=== PATIENT | male | born 1960 | race Caucasian/White ===

== ENCOUNTER 2018-09-17 13:12 | Emergency (ER) | payer BC, OTHER ==
--- OUTSIDE RECORDS SUMMARY | 2018-09-17 13:32 | XMS REPORT | Continuity of Care Document ---
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 Payers Date Identification Numbers Payment Provider Subscriber Effective: 2011 Policy Number: [id number] [employer] Group Name: [id number] [address] [address] PayID: [id number] ELAINE Curtis [id number] Advance Directives Description No Information Available Problems Active Problems Provider Date Pure hypercholesterolemia Suzie Pope MD Onset: 01/09/2006 Benign essential hypertension Suzie Pope MD Onset: 01/09/2006 Vitamin D deficiency Suzie Pope MD Onset: 12/08/2014 Essential hypertension Suzie Pope MD Onset: 01/30/2015 Mixed hyperlipidemia Suzie Pope MD Onset: 08/19/2016 Prosthetic arthroplasty of the hip Warren Groves PA Onset: 11/01/2016 Note: Right 10/2016 Family History Date Family Member(s) Observation Comments Father CT First Brother Heart Disease Second Brother Heart Disease Third Brother Cancer, Prostate Maternal Grandmother Cancer, Colon Social History Type Date Description Comments Sex Unknown Tobacco Use Start: Unknown End: Unknown Former Cigarette Smoker Tobacco Use Start: Unknown End: Unknown Patient is a former smoker Smoking Status Reviewed: 08/27/18 Patient is a former smoker Allergies, Adverse Reactions, Alerts Active Allergies Reaction Severity Comments Date Topiramate 10/24/2014 Inactive Allergies NKDA 12/10/2004 Medications Active Medications SIG Qnty Indications Ordering Date Provider Albuterol Sulfate 2 p four times a day 8.500gm R06.2 Niko, 06/15/2018 HFA as needed Suzie Teran MD 108(90Base) mcg/Act Aerosol Fluticasone 2 sprays in each 48gm J01.00 [facility], 06/15/2018 Propionate nostril daily Suzie Teran MD 50mcg/Act Suspension Gabapentin take 1 po bid and 2 120caps M47.816 [facility], 06/11/2018 300mg capsules by mouth Suzie Teran MD Capsules every night at bedtime Cpap autotitrating 5-15 G47.33 [facility], 06/08/2018 Device cm Suzie Teran MD Vitamin D3 1 by mouth every day E55.9 [facility], 05/21/2018 5000Unit Suzie Teran MD Tablets Atorvastatin 1 by mouth every day 90tabs E78.2 [facility], 05/21/2018 Calcium Suzie Teran MD 20mg Tablets Ozempic inject 0.5mg every 4.5ml E11.9 [facility], 05/21/2018 0.25Or 0.5 week as directed Suzie Teran MD mg/Dose Solution Pen-Inject Metaxalone 1- 2 every night at 30tabs M47.816 [facility], 05/18/2018 400mg bedtime as needed Suzie Teran MD Tablets Levitra 1 po qd prn 6tabs E29.1 [facility], 08/19/2016 10mg Suzie Teran MD Tablets Cock Up Splint wear qhs dx: bilat 2units G56.00 [facility], 06/02/2014 CTS Suzie Teran MD Lisinopril-Hydrochl take 1 tablet by 90tabs I10 [facility], 12/23/2013 orothiazide mouth once daily Suzie Teran MD 20-25mg Tablets Sertraline HCL take 1 and 1/2 135tabs F41.1 [facility], 05/31/2011 tablet by mouth once Suzie Teran MD 100mg Tablets daily History Medications Letter Of Support For this patient to Niko, 2018 - undergo bariatric Suzie Teran MD 08/27/2018 surgery for wt loss. Over the past decades we have tried multiple lifestyle and medication options Cheratussin ac 5-10 milliliters 120ml J01.00 [facility], 06/15/2018 - 100-10mg/5ML four times a day as Suzie Teran MD 08/27/2018 Solution needed cough Doxycycline Hyclate 1 by mouth twice a 20tabs J01.00 [facility], 06/15/2018 - 100mg day x 10 d Suzie Teran MD 08/27/2018 Tablets Prednisone 2 every in the 10tabs R06.2 [facility], 06/15/2018 - 20mg Tablets morning x 5 d Suzie Teran MD 08/27/2018 Cpap autotitrating 5-20 G47.33 [facility], 06/08/2018 - Device cm Suzie eTran MD 06/08/2018 Methylprednisolone as dir 21units M47.81 [facility], 05/18/2018 - 4mg TBPK 6 Suzie Teran MD 06/11/[address] excuse from work M47.81 [facility], 05/18/2018 - 05/18-05/29 return 6 Suzie Teran MD 06/15/2018 to work 05/30 Oseltamivir Phosphate 1 by mouth daily 10caps Niko, 06/14/2017 - 75mg for 10days Suzie Teran MD 06/24/2017 Capsules Azithromycin 1 by mouth every 3tabs J15.9 [facility], 06/01/2017 - 500mg Tablets day Suzie Teran MD 06/04/2017 Breo Ellipta 1 puff daily 28units J15.9 [facility], 06/01/2017 - 200-25mcg/Inh [sample x1] Suzie Teran MD 06/15/[address] excuse from work M16.12 [facility], 05/16/2017 - today thru 2/2 Suzie Teran MD 05/18/2018 Cyclobenzaprine HCL take one-half to 30tabs M54.32 [facility], 05/16/2017 - 10mg one tablet by mouth Suzie Teran MD 05/18/2018 Tablets at bedtime Hydrocodone-Acetaminophe 1-2 by mouth three 45tabs M16.12 [facility], 2017 - n times a day as Suzie Teran MD 05/18/2018 5-325mg Tablets needed Naproxen Sodium 1 po bid prn pain 60tabs M16.12 [facility], 05/16/2017 - 550mg Tablets Suzie Teran MD 08/27/2018 Azithromycin 2 tabs day one and 6tabs Niko, 01/06/2017 - 250mg Tablets 1 tab daily till Suzie Teran MD 01/25/2017 gone Famciclovir one tab three times 21tabs B02.9 [facility], 11/03/2016 - 500mg Tablets a day x 7 days Sunitha Aguilar RN 01/25/2017 [employer] Lidocaine apply daily for 12 30units B02.9 [facility], 11/03/2016 - 5% Patches hours and remove Sunitha Aguilar RN 01/25/2017 for 12 hours( [employer] generic ok) Tramadol HCL take one tablet by 30tabs Niko, 09/20/2016 - 50mg Tablets mouth three times a Suzie Teran MD 01/25/2017 day as needed for pain max of 3 tablets per day Vitamin D3 2 by mouth every E55.9 [facility], 08/19/2016 - 1000Unit Tablets day Suzie Teran MD 05/21/2018 Librax Take 1 Capsule 4 360caps Sarahri, 08/11/2016 - 5-2.5mg Capsules Times Daily MD Michael 08/19/2016 Vitamin D 1 by mouth qwk x 8 8caps Niko, 07/19/2016 - (Ergocalciferol) ekaterina Teran MD 08/19/2016 [id number] Capsules Fortamet 2 by mouth twice a 120tabs Z00.01 Niko, 07/15/2016 - 500mg Tablets ER day Suzie Teran MD 01/25/2017 24HR Work Note please excuse from Niko, 07/13/2015 - work 07/07-07/14 Suzie Teran MD 07/15/2016 Vitamin D 1 by mouth qwk x 8 8caps Nik[facility], 05/06/2015 - (Ergocalciferol) ekaterina Teran MD 07/15/2016 [id number] Capsules BD Pen for saxenda pen 30units Niko, 03/09/2015 - Needle/Short/Ultrafine/3 Suzie Teran MD 07/15/2016 1G X 5/16" 31G X 8 mm Misc Saxenda 3 mg sc every day 15ml E66.01 Nik[facility], 01/30/2015 - 18mg/3ML Solution Suzie Teran MD 07/15/2016 Pen-Inject Aspirin 1 by mouth every R07.2 [facility], 01/13/2015 - 325mg Tablets DR steff Teran MD 07/15/2016 Work Note pt needs to be oow R07.2 [facility], 01/13/2015 - today-sent to ER Suzie Teran MD 01/30/2015 Bupropion HCL ER (XL) 1 by mouth every 30tabs E29.1 Niko, 12/08/2014 - 300mg day Suzie Teran MD 07/15/2016 Tablets ER 24HR Levitra 1-2 by mouth every 6tabs E29.1 Niko, 12/08/2014 - 5mg Tablets day as needed Suzie Teran MD 08/19/2016 Bupropion HCL ER (XL) take one tablet by 7tabs E29.1 Nik[facility], 12/08/2014 - 150mg mouth every morning Suzie Teran MD 01/13/2015 Tablets ER 24HR Metformin HCL ER 1 with breakfast 2 90tabs Z00.01 Niko 12/08/2014 - 500mg with dinner Suzie Teran MD 07/15/2016 Tablets ER 24HR Meloxicam take 1/2 - 1 tablet 30tabs M25.55 Niko 10/24/2014 - 15mg Tablets everyday as needed 9 Suzie Teran MD 01/25/2017 Tramadol 1 by mouth twice a 60tabs M25.56 Niko 10/24/2014 - Hydrochloride/Acetaminop day as needed 9 Suzie Teran MD 07/15/2016 hen 37.5-325mg Tablets Vitamin D3 1 by mouth every E55.9 [facility] 10/24/2014 - 1000Unit Tablets day Suzie Teran MD 05/05/2015 Vitamin D 1 by mouth qwk x 8 8caps Niko, 06/03/2014 - (Ergocalciferol) wks Suzie Teran MD 10/24/2014 [id number] Capsules Contrave as dir starter QS 278.00 Niko, 06/02/2014 - 8-90mg Tablets ER pack- Suzie Teran MD 10/24/2014 12HR Robitussin ac 15cc every night at 150cc 478.9 Mandie Yousif 05/01/2014 - bedtime and tid MD Desire 06/02/2014 day time as needed for cough Azithromycin 2 tabs (500mg) on 6tabs 478.9 Mandie Yousif 05/01/2014 - 250mg Tablets day 1, then 1 tab MD Desire 06/02/2014 (250mg) by mouth on day 2-5. to fill only if no better in 48hr Tramadol Take 2 Tablets 3 540tabs Jitendra, 11/25/2013 - Hydrochloride/Acetaminop Times Daily as MD Morteza 06/02/2014 hen Needed 37.5-325mg Tablets Fluticasone Propionate 2 sprays in each 16units H69.93 Niko 2013 - nostril daily Suzie Teran MD 07/15/2016 50mcg/Act Suspension Atorvastatin Calcium 1 by mouth every 90tabs E78.2 Niko, 08/02/2013 - 10mg day Suzie Teran MD 05/21/2018 Tablets No Work Today for medical 780.79 Mandie Yousif 07/19/2013 - reasons. Seen in MD Desire 06/02/2014 our office Patient may extend sick leave tomorrow May 02, 2014 as needed Aspirin 1 po qd 785.9 Niko 06/18/2013 - 81mg Tablets Suzie Teran MD 01/13/2015 Topiramate 1 qhs x 1 wk then 2 90tabs 278.00 Niko 06/18/2013 - 50mg Tablets qhs x 1 wk then 1 Suzie Teran MD 08/02/2013 qam 2 qhs Omeprazole 1 by mouth every 30caps 530.11 Mandie Yousif 06/18/2013 - 40mg Capsules DR steff Phipps MD 12/08/2014 Work Note this pt's BP has Niko, 05/30/2012 - been well Suzie Teran MD 06/18/2013 controlled since 04/23/2012 appt Ultracet 1 po qid prn 120tabs 724.2 Niko, 04/23/2012 - 37.5-325mg Tablets Suzie Teran MD 06/02/2014 Work Note please excuse from 461.0 Niko 06/01/2011 - work 06/02, 06/03 Suzie Teran MD 01/02/2012 Alprazolam 1/2-2 po tid prn 20tabs Niko, 05/31/2011 - 0.25mg Tablets anxiety/insomnia Suzie Teran MD 06/18/2013 Azithromycin 2 tabs day one and 1Pack 461.0 Niko 05/31/2011 - 250mg Tablets 1 tab daily till Suzie Teran MD 04/23/2012 gone Vitamin D 1 po qwk x 8 wks 8caps Niko, 04/18/2011 - [id number] Capsules Suzie Teran MD 05/31/2011 Vitamin D 1 po qd 268.9 Niko, 04/18/2011 - 2000Unit Capsules Suzie Teran MD 06/02/2014 Alprazolam ER one half-two po tid 20tabs Niko, 04/04/2011 - 0.25mg Tablets prn anxiety Suzie Teran MD 05/31/2011 Sertraline HCL 1 And 1/2 qd 45tabs 300.02 Niko, 04/04/2011 - 50mg Tablets Suzie Teran MD 05/31/2011 Cialis Take 1 To 2 Tablets 6tabs 401.1 [place], 06/14/2010 - 10mg Tablets Daily as Directed Sunitha Aguilar RN 05/31/2011 [employer] Work Note pl excuse from work Niko, 05/07/2010 - 04/19 Suzie Teran MD 04/04/2011 Crestor take 1 tablet by 30tabs 272.0 Niko, 11/19/2009 - 20mg Tablets mouth once daily Suzie Teran MD 06/18/2013 Blood Draw lipid panel ast/alt [facility] 11/19/2009 - Fasting Suzie Teran MD 04/04/2011 dx: 272.0 Vytorin 1 po qd 30tabs Niko, 11/19/2009 - 10-80mg Tablets Suzie Teran MD 11/19/2009 Cialis 1/2-1 qd 3tabs 401.1 Nik[facility] 11/17/2009 - 20mg Tablets Suzie Teran MD 06/14/2010 Xanax one half-two po tid 20tabs Niko, 05/21/2009 - 0.25mg Tablets prn anxiety Suzie Teran MD 04/04/2011 Percocet 1-2 po qid prn 40tabs Niko, 02/24/2009 - 5-325mg Tablets Suzie Teran MD 11/17/2009 Physical Therapy eval and gently Niko, 02/24/2009 - treat lbp Suzie Teran MD 11/17/[address] excuse from work Niko, 02/24/2009 - 02/23-02/27 Suzie Teran MD 11/17/2009 Lisinopril take 1 tablet by 30tabs 401.1 [place], 12/29/2008 - 10mg Tablets mouth once daily Sunitha Aguilar RN 06/02/2014 [employer] Verapamil HCL ER take 1 capsule by 30caps Niko, 11/10/2008 - 300mg Caps mouth once daily Suzie Teran MD 04/04/2011 ER 24HR Tramadol Take 1 tablet every 120tabs 724.2 Niko 11/09/2008 - Hydrochloride/Acetaminop four hours as Suzie Teran MD 11/17/2009 hen directed Tabs Blood Draw cmp, lipid panel, 272.0 Niko 05/23/2008 - 25 oh vit D Suzie Teran MD 06/12/2008 dx: 272.0, vit D def Work Note pl excuse from work 724.2 [facility] 05/23/2008 - 05/26 and 05/27 Suzie Teran MD 06/22/2008 Blood Draw cbc, cmp, mg, TSH, 785.0 Niko 03/07/2008 - lipid panel, free Suzie Teran MD 04/06/2008 and total testosterone dx: 272.0, 785.0, low libido Cpap current cpap is G47.33 Niko 03/07/2008 - over 10 yrs old and Suzie Teran MD 06/08/2018 broken beyond repair.supplies.Do compliance downloads every 6 mos Cialis 1-2 PO qd 12tabs 401.1 Niko 03/07/2008 - 10mg Tablets Suzie Teran MD 11/17/2009 Celebrex take 1 capsule by 90capduran Pope 10/26/2007 - 200mg Caps mouth once daily if Suzie Teran MD 04/04/2011 needed May Take Second prn Nabumetone 2 PO qd 60tabs 724.1 Niko 08/28/2007 - 750mg Tablets Suzie Teran MD 10/26/2007 Medrol Dosepak as Dir 1Pack 724.1 [facility] 08/28/2007 - 4mg Tablets Suzie Teran MD 10/26/[address] excuse from work 724.1 Niko 08/21/2007 - until 08/26 Suzie Teran MD 10/26/2007 Hydrocodone/Acetaminophe 1-2 po qid prn 40tabs 724.1 Niko, 08/21/2007 - n Suzie Teran MD 11/17/2009 5-500mg Tablets Tussionex Pennkinetic 1 tsp q 12 hours 100ml 786.2 [facility], 04/03/2007 - Extended Release Sunitha Aguilar RN 04/23/2007 Liquid ER [employer] No Work 04/04/07 786.2 [facility], 04/03/2007 - D/T Illness Sunitha Aguilar RN 08/17/2007 [employer] Amoxicillin 1 PO bid 20tabs Niko, 03/27/2007 - 875mg Tablets Suzie Teran MD 08/17/2007 Wellbutrin XL 1 PO qd 7tabs 300.02 Niko, 07/10/2006 - 150mg Tablets Suzie Teran MD 03/07/2008 Wellbutrin XL 1 PO qd 30tabs 300.02 [facility], 07/10/2006 - 300mg Tablets Suzie Teran MD 03/07/2008 Lidoderm Apply as Directed 30units 724.2 Niko, 05/26/2006 - 5% Patches 1-3 Patches On X 12 Suzie Teran MD 11/17/2009 HRS Celebrex 1 PO qd prn 30caps 724.2 [facility], 05/26/2006 - 200mg Capsules Sunitha Aguilar RN 08/28/2007 [employer] Water Therapy Eval And Treat 724.2 Niko, 05/26/2006 - LBP/Mid Back Pain Suzie Teran MD 11/17/2009 Soma 1/2-1 PO tid prn 30tabs 786.59 Niko, 05/26/2006 - 350mg Tablets Suzie Teran MD 11/17/2009 Work Note Please Excuse From 786.59 Niko 05/26/2006 - Work 05/29-06/02 D/T Suzie Teran MD 09/15/2006 LBP And Acute Chest Wall Pain Blood Draw cbc, cmp, lipid 272.0 Niko, 01/09/2006 - panel, TSH, psa Suzie Teran MD 09/15/2006 dx: 272.0, fatigue, screen prostate CA Omeprazole 1 po qd 30units 724.2 Niko 01/09/2006 - 20mg Suzie Teran MD 11/17/2009 Nabumetone 1-2 po qd 60tabs 724.2 Del, 12/06/2005 - 750mg Tablets Sunitha Aguilar RN 05/26/2006 [employer] Physical Therapy eval and treat Niko, 05/20/2005 - lbpand r hip pain Suzie Teran MD 09/15/2006 [facility] [employer] Ultracet 1 PO Q4H 90tabs 724.2 Del, 04/12/2005 - 325mg;37.5 mg Sunitha Aguilar RN 11/09/2008 Tablets [employer] Blood Draw fasting: cbc, cmp, [facility] 04/12/2005 - lipid panel Suzie Teran MD 04/13/2005 dx: HTN, hiGHh chol Zestril 1 po qd 90tabs [place], 08/16/2004 - 10mg Tablets Suzie Teran MD 12/29/2008 Amoxicillin 1 po tid 30caps Niko, 08/16/2004 - 250mg Capsules Suzie Teran MD 12/10/2004 [address] [facility], 06/28/2004 - 10/40 Tablets Suzie Teran MD 11/19/2009 Verelan PM 1 po qd 90caps Niko, 06/28/2004 - 300mg Capsules Suzie Teran MD 11/10/2008 Levitra 1-2 po qd prn 12tabs Niko, 06/28/2004 - 10mg Tablets Suzie Teran MD 11/17/2009 Wellbutrin XL 1 po qam 30tabs Niko, 06/14/2004 - 300mg Tablets Suzie Teran MD 01/09/2006 Wellbutrin XL 1 po qd 30tabs [place], 06/14/2004 - 150mg Tablets MD Oswald 06/28/2004 Niaspan Extended Release 1 po qd 90tabs Trabout, 06/14/2004 - MD Oswald 06/28/2004 1,000mg Tablets Zocor 1 po qd 30tabs Trabout, 06/14/2004 - 40mg Tablets MD Oswald 06/28/2004 Immunizations CPT Code Status Date Vaccine Lot # [id number] Given 05/18/2018 Influenza Vac, Quadrivalent, Split, 0.5mL Dosage, Im Use 52079 Given 01/11/2017 Influenza Vac, Quadrivalent, Split, 0.5mL Dosage, Im Use 28307 Given 07/15/2016 Tdap (Adacel) Ages 7 And Above Only [id number] 30636 Given 01/13/2015 Influenza Vac, Quadrivalent, Split, 0.5mL Dosage, [id number] Im Use 59254 Given 05/31/2011 Pneumococcal 23 Immunization Adult Or [id number] Immunosuppressed Patient 57292 Given 03/07/2008 Afluria Or Fluvirin Flu Vac Intramuscular [id number] 79045 Given 04/12/2005 Tetanus And Diptheria Toxoids For Adult [id number] Use-preservative free 20644 Given 04/12/2005 Afluria Or Fluvirin Flu Vac Intramuscular [id number] 77139 Given 01/14/2003 Afluria Or Fluvirin Flu Vac Intramuscular [id number] Refused 07/15/2016 Influenza Vac, Quadrivalent, Split, 0.5mL Dosage, Im Use Vital Signs Date Vital Result Comment 08/27/2018 1:21pm Weight 265.00 lb Heart Rate 76 /min BP Systolic 140 mmHg BP Diastolic 64 mmHg BP Systolic Recheck 128 mmHg BP Diastolic Recheck 80 mmHg Height 70.25 inches 5'10.25" BMI (Body Mass Index) 37.7 kg/m2 06/15/2018 4:00pm Body Temperature 99.4 F Weight 281.00 lb Heart Rate 76 /min BP Systolic 128 mmHg BP Diastolic 68 mmHg Height 70.25 inches 5'10.25" BMI (Body Mass Index) 40.0 kg/m2 05/18/2018 2:56pm Weight 290.00 lb Heart Rate 60 /min BP Systolic 128 mmHg BP Diastolic 68 mmHg Height 70.25 inches 5'10.25" BMI (Body Mass Index) 41.3 kg/m2 06/01/2017 9:39am Body Temperature 96.4 F Weight 276.00 lb Heart Rate 72 /min BP Systolic 148 mmHg BP Diastolic 84 mmHg Height 70.25 inches 5'10.25" O2 % BldC Oximetry 99 % Ra BMI (Body Mass Index) 39.3 kg/m2 05/16/2017 2:29pm Heart Rate 76 /min BP Systolic 128 mmHg BP Diastolic 76 mmHg Height 70.25 inches 5'10.25" 01/25/2017 2:37pm Weight 281.00 lb Heart Rate 76 /min BP Systolic 132 mmHg BP Diastolic 86 mmHg Height 70.25 inches 5'10.25" BMI (Body Mass Index) 40.0 kg/m2 11/03/2016 4:14pm Weight 270.25 lb Heart Rate 84 /min BP Systolic 145 mmHg BP Diastolic 81 mmHg Height 70.25 inches 5'10.25" BMI (Body Mass Index) 38.5 kg/m2 08/19/2016 2:13pm Weight 266.00 lb Heart Rate 80 /min BP Systolic 136 mmHg BP Diastolic 76 mmHg Height 70.25 inches 5'10.25" BMI (Body Mass Index) 37.9 kg/m2 07/15/2016 8:43am Weight 277.00 lb Heart Rate 68 /min BP Systolic 144 mmHg BP Diastolic 84 mmHg BP Systolic Recheck 138 mmHg BP Diastolic Recheck 80 mmHg Height 70.25 inches 5'10.25" BMI (Body Mass Index) 39.5 kg/m2 05/05/2015 1:13pm Body Temperature 97.8 F Weight 262.00 lb Heart Rate 76 /min BP Systolic 136 mmHg BP Diastolic 68 mmHg Height 70.25 inches 5'10.25" BMI (Body Mass Index) 37.3 kg/m2 03/02/2015 2:43pm Weight 262.00 lb Heart Rate 76 /min BP Systolic 128 mmHg BP Diastolic 64 mmHg Height 70.25 inches 5'10.25" BMI (Body Mass Index) 37.3 kg/m2 01/30/2015 1:41pm Weight 274.00 lb Heart Rate 80 /min BP Systolic 132 mmHg BP Diastolic 68 mmHg Height 70.25 inches 5'10.25" BMI (Body Mass Index) 39.0 kg/m2 01/13/2015 12:19pm Weight 275.00 lb Heart Rate 84 /min BP Systolic 128 mmHg BP Diastolic 72 mmHg Height 70.25 inches 5'10.25" BMI (Body Mass Index) 39.2 kg/m2 12/08/2014 11:38am Weight 279.00 lb Heart Rate 64 /min BP Systolic 142 mmHg BP Diastolic 86 mmHg Height 70.25 inches 5'10.25" BMI (Body Mass Index) 39.7 kg/m2 10/24/2014 3:03pm Weight 273.00 lb Heart Rate 80 /min BP Systolic 148 mmHg BP Diastolic 86 mmHg Height 70.25 inches 5'10.25" BMI (Body Mass Index) 38.9 kg/m2 06/02/2014 2:22pm Weight 268.00 lb Heart Rate 88 /min BP Systolic 140 mmHg BP Diastolic 66 mmHg Height 70.25 inches 5'10.25" BMI (Body Mass Index) 38.2 kg/m2 05/01/2014 10:33am Weight 266.50 lb Heart Rate 76 /min BP Systolic 124 mmHg BP Diastolic 80 mmHg Height 70.25 inches 5'10.25" BMI (Body Mass Index) 38.0 kg/m2 08/02/2013 3:08pm Weight 272.00 lb Heart Rate 68 /min BP Systolic 118 mmHg BP Diastolic 70 mmHg Height 70.25 inches 5'10.25" BMI (Body Mass Index) 38.7 kg/m2 07/19/2013 12:11pm Body Temperature 97.9 F Weight 272.00 lb Heart Rate 72 /min BP Systolic 148 mmHg BP Diastolic 91 mmHg O2 Saturation Level with Exercise 96 % 06/18/2013 3:14pm Weight 277.00 lb Heart Rate 80 /min BP Systolic 142 mmHg BP Diastolic 82 mmHg Height 70.25 inches 5'10.25" BMI (Body Mass Index) 39.5 kg/m2 04/23/2012 5:35pm Weight 265.00 lb Heart Rate 76 /min BP Systolic 120 mmHg BP Diastolic 82 mmHg Height 70.25 inches 5'10.25" BMI (Body Mass Index) 37.7 kg/m2 05/31/2011 10:16am Weight 242.00 lb Heart Rate 60 /min BP Systolic 136 mmHg BP Diastolic 88 mmHg Height 70.25 inches 5'10.25" BMI (Body Mass Index) 34.5 kg/m2 04/04/2011 12:23pm Weight 259.00 lb Heart Rate 64 /min BP Systolic 146 mmHg BP Diastolic 96 mmHg Height 70.5 inches 5'10.50" BMI (Body Mass Index) 36.6 kg/m2 11/17/2009 11:58am Weight 235.00 lb Heart Rate 60 /min BP Systolic 120 mmHg BP Diastolic 74 mmHg Urine Dipstick - Blood NEGATIVE Urine Dipstick - Protein NEGATIVE Urine Dipstick - Glucose NEGATIVE 05/23/2008 4:23pm Weight 248.00 lb Heart Rate 76 /min BP Systolic 136 mmHg BP Diastolic 78 mmHg 03/07/2008 3:59pm Weight 248.00 lb Heart Rate 76 /min BP Systolic 140 mmHg BP Diastolic 80 mmHg Height 70.25 inches 5'10.25" BMI (Body Mass Index) 35.3 kg/m2 08/28/2007 12:27pm Weight 238.00 lb Heart Rate 76 /min BP Systolic 123 mmHg BP Diastolic 75 mmHg Height 70.25 inches 5'10.25" BMI (Body Mass Index) 33.9 kg/m2 08/21/2007 11:45am Weight 238.00 lb Heart Rate 81 /min BP Systolic 145 mmHg BP Diastolic 91 mmHg Height 70.25 inches 5'10.25" BMI (Body Mass Index) 33.9 kg/m2 Urine Dipstick - Blood NEGATIVE Urine Dipstick - Protein NEGATIVE Urine Dipstick - Glucose NEGATIVE 04/03/2007 4:21pm Body Temperature 97.6 F Weight 240.00 lb Heart Rate 84 /min BP Systolic 145 mmHg BP Diastolic 90 mmHg Height 70.25 inches 5'10.25" BMI (Body Mass Index) 34.2 kg/m2 09/15/2006 7:59am Weight 223.00 lb Heart Rate 64 /min BP Systolic 128 mmHg BP Diastolic 76 mmHg Height 70.25 inches 5'10.25" BMI (Body Mass Index) 31.8 kg/m2 07/10/2006 11:10am Weight 247.00 lb Heart Rate 72 /min BP Systolic 140 mmHg BP Diastolic 82 mmHg Height 70.25 inches 5'10.25" BMI (Body Mass Index) 35.2 kg/m2 05/26/2006 11:25am Weight 241.00 lb Heart Rate 76 /min Height 70.25 inches 5'10.25" BMI (Body Mass Index) 34.3 kg/m2 05/26/2006 11:19am BP Systolic 124 mmHg BP Diastolic 82 mmHg Height 70.25 inches 5'10.25" 01/09/2006 10:43am Weight 239.00 lb Heart Rate 72 /min BP Systolic 106 mmHg BP Diastolic 70 mmHg Height 70.25 inches 5'10.25" BMI (Body Mass Index) 34.0 kg/m2 Urine Dipstick - Blood NEGATIVE Urine Dipstick - Protein NEGATIVE Urine Dipstick - Glucose NEGATIVE 04/12/2005 10:38am Weight 225.00 lb Heart Rate 60 /min BP Systolic 146 mmHg BP Diastolic 83 mmHg BP Systolic Recheck 130 mmHg BP Diastolic Recheck 85 mmHg Urine Dipstick - Blood NEGATIVE Urine Dipstick - Protein NEGATIVE Urine Dipstick - Glucose NEGATIVE 12/10/2004 3:50pm Weight 228.00 lb Heart Rate 76 /min BP Systolic 144 mmHg BP Diastolic 80 mmHg 06/28/2004 2:28pm Weight 240.00 lb Heart Rate 82 /min BP Systolic 149 mmHg BP Diastolic 90 mmHg Results Test Date Facility Test Result H/L Range Note Basic (BMP) 08/27/2018 [facility] Sodium 139 mmol/L 135-146 1, 2 Potassium 4.2 mmol/L 3.5-5.2 Chloride# 102 mmol/L 97-110 3 Carbon Dioxide 27 mmol/L 24-34 Glucose 88 mg/dL 70-105 BUN 24 mg/dL 6-26 Creatinine 1.0 mg/dL 0.5-1.4 Calcium 9.9 mg/dL 8.5-10.5 4 Female Egfr 62 >60 5 Male Egfr 83 >60 6 Anion Gap 10 mmol/L 5-15 7 Lipid Treatment 08/27/2018 [facility] Cholesterol 163 mg/dL 50-199 Triglycerides 271 mg/dL High 30-200 HDL 33 mg/dL 29-71 8 Chol/ HDL Ratio 5.0 ratio 4.0-6.7 VLDL 54 mg/dL High 2-29 LDL (Calc) 76 mg/dL 20-99 9 Alt 19 U/L 3-42 Ast 17 U/L 8-42 Laboratory test 08/27/2018 [facility] Vitamin D 25 Hydroxy 19 ng/mL Low 30- 100 10 finding Hemoglobin A1c 08/27/2018 [facility] Hemoglobin A1c 5.8 % 4.1-5.9 Estimated Average Glucose Calc 120 mg/dL 71-140 Laboratory test finding 08/27/2018 [facility] PSA 1.200 ng/mL 0.000-4.000 11 TSH 1.51 uIU/mL 0.35-4.94 Magnesium 2.0 mg/dL 1.5-2.7 Laboratory test 06/15/2018 Done In Doctors Office 1 Rapid Flu NEG FOR A finding Test (In House) AND B CBC with Auto 05/18/2018 [facility] WBC 7.3 K/uL 4.1-11.0 Diff-fcmg RBC 5.09 M/uL 4.60-6.10 Hemoglobin 15.1 gm/dL 13.5-18.0 Hematocrit 44.6 % 41.0-53.0 MCV 87.7 fL 80.0-97.0 MCH 29.8 pg 27.0-32.0 MCHC 34.0 g/dL 32.0-36.0 RDW 14.6 % High 11.5-14.5 PLT Count 287 K/ul 140-400 MPV 8.1 FL 7.1-10.7 Neutrophil 58.3 % 35.0-75.0 Lymphocyte 28.6 % 16.0-52.0 Monocyte 9.0 % 2.0-10.0 Eosinophil 3.2 % 0.0-5.0 Basophil 0.9 % 0.0-4.0 Abs Neutrophils 4.3 K/uL 2.1-8.0 Abs Lymphocytes 2.1 K/uL 0.8-5.5 Abs Monocytes 0.7 K/uL 0.1-1.0 Abs Eosinophils 0.2 K/uL 0.0-0.5 Abs Basophils 0.1 K/uL 0.0-0.3 Comprehensive Met Panel-[facility] 05/18/2018 [place] Sodium 138 mmol/L 135- 146 12 Potassium 4.7 mmol/L 3.5-5.2 Chloride# 100 mmol/L 97-110 13 Carbon Dioxide 32 mmol/L 24-34 Glucose 102 mg/dL 70-105 BUN 18 mg/dL 6-26 Creatinine 1.1 mg/dL 0.5-1.4 Calcium 9.4 mg/dL 8.5-10.2 Total Protein 6.4 g/dL 6.0-8.0 Albumin 4.4 g/dL 3.6-4.9 Globulin 2.0 g/dL 2.0-3.5 A/G Ratio 2.2 Ratio 1.0-2.2 Total Bilirubin 0.3 mg/dL 0.1-1.3 Alkaline Phosphatase 88 U/L 24-140 Alt 29 U/L 3-42 Ast 20 U/L 8-42 Anion Gap 6 mmol/L 5-15 14 Anabela Egfr >60 >60 15 Non Anabela Egfr >60 >60 16 Lipid 05/18/2018 [place] Cholesterol 241 mg/dL High 50-199 Triglycerides 326 mg/dL High 30-200 HDL 34 mg/dL 29-71 17 Chol/ HDL Ratio 7.0 ratio High 4.0-6.7 VLDL 65 mg/dL High 2-29 LDL (Calc) 142 mg/dL High 20-99 18 Hemoglobin A1c 05/18/2018 [place] Hemoglobin A1c 6.7 % High 4.1-5.9 Estimated Average Glucose Calc 146 mg/dL High 71-140 Laboratory test finding 05/18/2018 [facility] Vitamin D 25 Hydroxy 18 ng/mL Low 30-100 19 TSH 1.57 uIU/mL 0.35-4.94 Laboratory test finding 01/25/2017 [facility] SEE NOTE 20 Laboratory test finding 01/25/2017 [facility] Vit D25oh 28 ng/mL Low 31-100 TSH 1.21 uIU/mL 0.35-4.94 Lipid 01/25/2017 [facility] Cholesterol 180 mg/dL 50-199 Triglycerides 258 mg/dL High 30-200 HDL 33 mg/dL 29-71 21 Chol/ HDL Ratio 5.4 ratio 4.0-6.7 VLDL 52 mg/dL High 2-29 LDL (Calc) 95 mg/dL 20-99 22 Hemoglobin A1c 01/25/2017 [facility] Hemoglobin A1c 6.4 % High 4.1-5.9 Estimated Average Glucose Calc 137 71-140 Comprehensive Met Panel-[facility] 01/25/2017 [facility] Sodium 139 mmol/L 135- 146 23 Potassium 4.8 mmol/L 3.5-5.2 Chloride# 103 mmol/L 97-110 24 Carbon Dioxide 25 mmol/L 24-34 Glucose 78 mg/dL 70-105 Creatinine 1.0 mg/dL 0.5-1.4 Calcium 9.3 mg/dL 8.5-10.2 Total Protein 6.6 g/dL 6.0-8.0 Albumin 4.0 g/dL 3.6-4.9 Globulin 2.6 g/dL 2.0-3.5 A/G Ratio 1.5 Ratio 1.0-2.2 Total Bilirubin 0.4 mg/dL 0.1-1.3 Alkaline Phosphatase 83 U/L 24-140 Alt 26 U/L 3-42 Ast 19 U/L 8-42 Anabela Egfr >60 >60 25 Non Anabela Egfr >60 >60 26 Anion Gap 11 mmol/L 7-16 27 BUN 14 mg/dL 6-26 Comprehensive Metabolic (CMP) 08/19/2016 [facility] Sodium 137 mmol/L 135- 146 28 Potassium 4.2 mmol/L 3.5-5.2 Chloride# 100 mmol/L 97-110 29 Carbon Dioxide 29 mmol/L 24-34 Glucose 90 mg/dL 70-105 BUN 19 mg/dL 6-26 Creatinine 1.1 mg/dL 0.5-1.4 Calcium 9.5 mg/dL 8.5-10.2 Total Protein 7.1 g/dL 6.0-8.0 Albumin 4.5 g/dL 3.6-4.9 Globulin 2.6 g/dL 2.0-3.5 A/G Ratio 1.7 Ratio 1.0-2.2 Total Bilirubin 0.4 mg/dL 0.1-1.3 Alkaline Phosphatase 83 U/L 24-140 Alt 24 U/L 3-42 Ast 20 U/L 8-42 Anabela Egfr >60 >60 30 Non Anabela Egfr >60 >60 31 Anion Gap 12 mmol/L 7-16 32 Lipid 08/19/2016 [facility] Cholesterol 184 mg/dL 50-199 Triglycerides 195 mg/dL 30-200 HDL 39 mg/dL 29-71 33 Chol/ HDL Ratio 4.8 ratio 4.0-6.7 VLDL 39 mg/dL High 2-29 LDL (Calc) 107 mg/dL High 20-99 34 Laboratory test finding 08/19/2016 [facility] Vit D,25 Hydroxy 35 ng/mL 31- 100 Laboratory test finding 07/15/2016 [facility] Amylase 35 U/L 29-103 Lipase 36 U/L 11-82 Testos,Bioavail,Male-[facility] 07/15/2016 [facility] Testosterone 212 ng/dL Low 285-950 Total Adult Male Sex Hormone Binding Globulin 27.7 nmol/L 13.3-89.5 Testosterone Bioavailable Adult Male 105 ng/dL 100-525 Testosterone Percent Free 2.1 % 1.8-3.2 Testosterone Free Adult Male 45 pg/mL Low 50-247 CBC With Auto Diff 07/15/2016 [facility] WBC 7.0 K/uL 4.1-11.0 RBC 5.02 M/uL 4.60-6.10 Hemoglobin 15.0 gm/dL 13.5-18.0 Hematocrit 44.3 % 41.0-53.0 MCV 88.3 fL 80.0-97.0 MCH 30.0 pg 27.0-32.0 MCHC 33.9 g/dL 32.0-36.0 RDW 14.0 % 11.5-14.5 PLT Count 297 K/ul 140-400 Neutrophil 52.3 % 35.0-75.0 Lymphocyte 34.1 % 16.0-52.0 Monocyte 9.1 % 2.0-10.0 Eosinophil 3.2 % 0.0-5.0 Basophil 1.3 % 0.0-4.0 Abs Neutrophils 3.7 K/uL 2.1-8.0 Abs Lymphocytes 2.4 K/uL 0.8-5.5 Abs Monocytes 0.6 K/uL 0.1-1.0 Abs Eosinophils 0.2 K/uL 0.0-0.5 Abs Basophils 0.1 K/uL 0.0-0.3 Comprehensive Metabolic (CMP) 07/15/2016 [facility] Sodium 138 mmol/L 135- 146 35 Potassium 4.5 mmol/L 3.5-5.2 Chloride# 102 mmol/L 97-110 36 Carbon Dioxide 28 mmol/L 24-34 Glucose 114 mg/dL High 70-105 BUN 18 mg/dL 6-26 Creatinine 1.0 mg/dL 0.5-1.4 Calcium 9.2 mg/dL 8.5-10.2 Total Protein 6.6 g/dL 6.0-8.0 Albumin 4.3 g/dL 3.6-4.9 Globulin 2.3 g/dL 2.0-3.5 A/G Ratio 1.9 Ratio 1.0-2.2 Total Bilirubin 0.5 mg/dL 0.1-1.3 Alkaline Phosphatase 73 U/L 24-140 Alt 28 U/L 3-42 Ast 20 U/L 8-42 Anabela Egfr >60 >60 37 Non Anabela Egfr >60 >60 38 Anion Gap 13 mmol/L 7-16 39 Laboratory test finding 07/15/2016 [facility] Hemoglobin A1c 6.3 % High 4.1- 5.9 Lipid 07/15/2016 [facility] Cholesterol 256 mg/dL High 50-199 Triglycerides 231 mg/dL High 30-200 HDL 35 mg/dL 29-71 40 Chol/ HDL Ratio 7.3 ratio High 4.0-6.7 VLDL 46 mg/dL High 2-29 LDL (Calc) 175 mg/dL High 20-99 41 Laboratory test finding 07/15/2016 [facility] Vit D,25 Hydroxy 20 ng/mL Low 31-100 PSA 0.970 ng/mL 0.000-4.000 42 TSH 1.41 uIU/mL 0.35-4.94 Comprehensive Metabolic (CMP) 05/05/2015 [facility] Sodium 134 mmol/L 134- 142 Potassium 4.0 mmol/L 3.5-5.2 Chloride 101 mmol/L 97-109 Carbon Dioxide 27 mmol/L 24-34 Glucose 96 mg/dL 70-105 BUN 18 mg/dL 6-26 Creatinine 1.2 mg/dL 0.5-1.4 Calcium 8.7 mg/dL 8.5-10.2 Total Protein 6.3 g/dL 6.0-8.0 Albumin 4.0 g/dL 3.6-4.9 Globulin 2.3 g/dL 2.0-3.5 A/G Ratio 1.7 Ratio 1.0-2.2 Total Bilirubin 0.3 mg/dL 0.1-1.3 Alkaline Phosphatase 82 U/L 24-140 Alt 26 U/L 3-42 Ast 18 U/L 8-42 Anion Gap 10 mmol/L 6-14 Anabela Egfr >60 >60 43 Non Anabela Egfr >60 >60 44 Lipid 05/05/2015 [facility] Cholesterol 145 mg/dL 50-199 Triglycerides 456 Specimen Mod <SEE NOTE> mg/dL High 30-200 45 HDL 29 mg/dL 29-71 46 Chol/ HDL Ratio 5.0 ratio 4.0-6.7 Laboratory test finding 05/05/2015 [place] Hemoglobin A1c 5.9 % 4.1-5.9 Vit D,25 Hydroxy 23 ng/mL Low 31-100 Laboratory test finding 05/05/2015 [facility] Direct LDL 76 mg/dL 20-99 47 Comprehensive Metabolic (CMP) 01/30/2015 [facility] Sodium 138 mmol/L 134- 142 Potassium 4.8 mmol/L 3.5-5.2 Chloride 103 mmol/L 97-109 Carbon Dioxide 30 mmol/L 24-34 Glucose 84 mg/dL 70-105 BUN 18 mg/dL 6-26 Creatinine 1.1 mg/dL 0.5-1.4 Calcium 9.2 mg/dL 8.5-10.2 Total Protein 6.8 g/dL 6.0-8.0 Albumin 4.3 g/dL 3.6-4.9 Globulin 2.5 g/dL 2.0-3.5 A/G Ratio 1.7 Ratio 1.0-2.2 Total Bilirubin 0.4 mg/dL 0.1-1.3 Alkaline Phosphatase 81 U/L 24-140 Alt 24 U/L 3-42 Ast 17 U/L 8-42 Anion Gap 10 mmol/L 6-14 Anabela Egfr >60 >60 48 Non Anabela Egfr >60 >60 49 Laboratory test finding 12/08/2014 [facility] Lyme Igm/Igg AB NEGATIVE (Neg ) 50 CCP Antibody Igg 3 51 Rubella Igg AB POSITIVE AI 52 Measles Igg AB POSITIVE AI 53 Mumps Igg (Immune) POSITIVE AI 54 Laboratory test finding 12/08/2014 [facility] CPK 185 U/L 12-199 Esr 9 mm/hr 0-15 CRP (C-Reactive) 0.49 mg/dL 0.00-0.75 Rheumatoid Factor <10.0 IU/mL 0.0-10.0 Uric Acid 6.2 mg/dL 2.6-8.4 Amy Screen Neg Neg TSH 1.22 uIU/mL 0.35-4.94 CBC With Auto Diff 12/08/2014 [facility] WBC 7.0 K/uL 4.1-11.0 RBC 4.83 M/uL 4.60-6.10 Hemoglobin 14.3 gm/dL 13.5-18.0 Hematocrit 43.5 % 41.0-53.0 MCV 90.2 fL 80.0-97.0 MCH 29.7 pg 27.0-32.0 MCHC 32.9 g/dL 32.0-36.0 RDW 13.8 % 11.5-14.5 PLT Count 261 K/ul 140-400 Neutrophil 51.4 % 35.0-75.0 Lymphocyte 35.9 % 16.0-52.0 Monocyte 8.4 % 2.0-10.0 Eosinophil 3.2 % 0.0-5.0 Basophil 1.1 % 0.0-4.0 Abs Neutrophils 3.6 K/uL 2.1-8.0 Abs Lymphocytes 2.5 K/uL 0.8-5.5 Abmon 0.6 K/uL 0.1-1.0 Abs Eosinophils 0.2 K/uL 0.0-0.5 Abs Basophils 0.1 K/uL 0.0-0.3 Laboratory test finding 12/08/2014 [facility] Hemoglobin A1c 6.4 % High 4.1- 5.9 Vit D,25 Hydroxy 37 ng/mL 31-100 PSA 0.990 ng/mL 0.000-4.000 55 Lipid 12/08/2014 [facility] Cholesterol 170 mg/dL 50-199 Triglycerides 187 mg/dL 30-200 HDL 35 mg/dL 29-71 56 Chol/ HDL Ratio 4.9 ratio 4.0-6.7 VLDL 37 mg/dL High 2-29 LDL (Calc) 98 mg/dL 20-99 57 Comprehensive Metabolic (CMP) 12/08/2014 [facility] Sodium 136 mmol/L 134- 142 Potassium 4.2 mmol/L 3.5-5.2 Chloride 103 mmol/L 97-109 Carbon Dioxide 23 mmol/L Low 24-34 Glucose 90 mg/dL 70-105 BUN 14 mg/dL 6-26 Creatinine 0.9 mg/dL 0.5-1.4 Calcium 8.6 mg/dL 8.5-10.2 Total Protein 6.4 g/dL 6.0-8.0 Albumin 4.1 g/dL 3.6-4.9 Globulin 2.3 g/dL 2.0-3.5 A/G Ratio 1.8 Ratio 1.0-2.2 Total Bilirubin 0.4 mg/dL 0.1-1.3 Alkaline Phosphatase 70 U/L 24-140 Alt 27 U/L 3-42 Ast 18 U/L 8-42 Anion Gap 14 mmol/L 6-14 Anabela Egfr >60 >60 58 Non Anabela Egfr >60 >60 59 [facility] 60 CBC With Auto Diff 06/02/2014 [facility] WBC 7.9 K/uL 4.1-11.0 RBC 4.97 M/uL 4.60-6.10 Hemoglobin 15.1 gm/dL 13.5-18.0 Hematocrit 44.2 % 41.0-53.0 MCV 89.0 fL 80.0-97.0 MCH 30.3 pg 27.0-32.0 MCHC 34.1 g/dL 32.0-36.0 RDW 14.1 % 11.5-14.5 PLT Count 321 K/ul 140-400 Neutrophil 57.1 % 35.0-75.0 Lymphocyte 30.5 % 16.0-52.0 Monocyte 7.6 % 2.0-10.0 Eosinophil 3.6 % 0.0-5.0 Basophil 1.2 % 0.0-4.0 Abs Neutrophils 4.5 K/uL 2.1-8.0 Abs Lymphocytes 2.4 K/uL 0.8-5.5 Abmon 0.6 K/uL 0.1-1.0 Abs Eosinophils 0.3 K/uL 0.0-0.5 Abs Basophils 0.1 K/uL 0.0-0.3 Comprehensive Metabolic (CMP) 06/02/2014 [facility] Sodium 134 mmol/L 134- 142 Potassium 4.1 mmol/L 3.5-5.2 Chloride 102 mmol/L 97-109 Carbon Dioxide 25 mmol/L 24-34 Glucose 116 mg/dL High 70-105 BUN 18 mg/dL 6-26 Creatinine 1.0 mg/dL 0.5-1.4 Calcium 9.3 mg/dL 8.5-10.2 Total Protein 6.7 g/dL 6.0-8.0 Albumin 4.3 g/dL 3.6-4.9 Globulin 2.4 g/dL 2.0-3.5 A/G Ratio 1.8 Ratio 1.0-2.2 Total Bilirubin 0.3 mg/dL 0.1-1.3 Alkaline Phosphatase 92 U/L 24-140 Alt 27 U/L 3-42 Ast 18 U/L 8-42 Anion Gap 11 mmol/L 6-14 Anabela Egfr >60 >60 61 Non Anabela Egfr >60 >60 62 Lipid 06/02/2014 [facility] Cholesterol 231 mg/dL High 50-199 Triglycerides 707 Specimen Mod <SEE NOTE> mg/dL High 30-200 63 HDL 30 mg/dL 29-71 64 Chol/ HDL Ratio 7.7 ratio High 4.0-6.7 Laboratory test finding 06/02/2014 [facility] Hemoglobin A1c 6.2 % High 4.1- 5.9 TSH 1.98 uIU/mL 0.34-5.60 Free T4 0.80 ng/dL 0.50-1.60 Vit D,25 Hydroxy 23 ng/mL Low 31-100 65 Hepatitis C Virus Antibody Non reactive Non reactive Vitamin B12 359 pg/mL 180-914 Magnesium 1.9 mg/dL 1.5-2.7 Direct LDL 143 mg/dL High 20-99 66 Ebv Evaluation -RL 07/19/2013 [facility] Ebv Vca Igg @ POSITIVE (Neg) 67, 68 Ebv Vca Igm @ NEGATIVE (Neg) Ebv Early Ag Igg @ NEGATIVE (Neg) Ebv Nuclear Ag Igg @ POSITIVE (Neg) 69 Basic (BMP) 07/19/2013 [facility] Sodium 135 mmol/L 134-142 Potassium 4.2 mmol/L 3.5-5.2 Chloride 106 mmol/L 97-109 Carbon Dioxide 23 mmol/L Low 24-34 70 Glucose 85 mg/dL 70-105 BUN 18 mg/dL 6-26 Creatinine 1.1 mg/dL 0.5-1.4 Calcium 9.2 mg/dL 8.5-10.2 Anion Gap 10 mmol/L 6-14 Non Anabela Egfr >60 >60 71 Anabela Egfr >60 >60 72 Iron Panel 07/19/2013 [facility] Iron, Total 90 g/dL 65-175 Transferrin 222.7 mg/dL 203.0-362.0 Tibc (calc) 312 g/dL 261-478 % Iron Saturation 28.9 % 13.0-45.0 Laboratory test finding 07/19/2013 [facility] Vitamin B12 353 pg/mL 180- 914 Lipid 05/31/2011 [facility] Cholesterol 182 mg/dL 50-199 73 Triglycerides 144 mg/dL 10-150 HDL 38 mg/dL 23-92 74 Chol/ HDL Ratio 4.8 ratio 4.0-6.7 VLDL 29 mg/dL 2-29 LDL (Calc) 115 mg/dL 20-129 75 Comprehensive Metabolic (CMP) 05/31/2011 [facility] Sodium 137 mmol/L 135- 144 Potassium 4.3 mmol/L 3.5-5.1 Chloride 102 mmol/L 97-107 Carbon Dioxide 27 mmol/L 24-34 Glucose 93 mg/dL 70-105 BUN 13 mg/dL 7-25 Creatinine 0.9 mg/dL 0.7-1.3 Calcium 9.4 mg/dL 8.6-10.3 BUN/CR 14 ratio 12-20 Total Protein 7.0 g/dL 6.0-8.5 Albumin 4.9 g/dL 3.5-5.7 Globulin 2.1 g/dL 2.0-3.5 A/G Ratio 2.3 Ratio High 1.0-2.2 Total Bilirubin 0.5 mg/dL 0.3-1.3 Alkaline Phosphatase 76 U/L 34-104 Alt 29 U/L 7-52 Ast 21 U/L 13-39 Anion Gap 12 mmol/L 8-16 Non Anabela Egfr >60 >60 76 Anabela Egfr >60 >60 77 Laboratory test finding 05/31/2011 [facility] Vit D,25 Hydroxy 50 ng/mL 31- 100 CBC With Auto Diff 04/04/2011 [facility] WBC 6.3 K/uL 4.1-11.0 RBC 4.67 M/uL 4.60-6.10 Hemoglobin 15.0 gm/dL 13.5-18.0 Hematocrit 42.5 % 41.0-53.0 MCV 90.9 fL 80.0-97.0 MCH 32.0 pg 27.0-32.0 MCHC 35.2 g/dL 32.0-36.0 RDW 13.6 % 11.5-14.5 PLT Count 263 K/ul 140-400 Neutrophil 54.1 % 35.0-75.0 Lymphocyte 34.0 % 16.0-52.0 Monocyte 8.5 % 2.0-10.0 Eosinophil 2.8 % 0.0-5.0 Basophil 0.6 % 0.0-4.0 Abs Neutrophils 3.4 K/uL 2.1-8.0 Abs Lymphocytes 2.2 K/uL 0.8-5.5 Abs Monocytes 0.5 K/uL 0.1-1.0 Abs Eosinophils 0.2 K/uL 0.0-0.5 Abs Basophils 0.0 K/uL 0.0-0.3 Laboratory test finding 04/04/2011 [facility] TSH 1.31 uIU/mL 0.34-5.60 Comprehensive Metabolic (CMP) 04/04/2011 [facility] Sodium 137 mmol/L 135- 144 Potassium 4.0 mmol/L 3.6-5.2 Chloride 104 mmol/L 97-110 Carbon Dioxide 27 mmol/L 23-32 Glucose 83 mg/dL 70-105 BUN 11 mg/dL 6-22 Creatinine 0.9 mg/dL 0.5-1.3 Calcium 9.2 mg/dL 8.6-10.2 BUN/CR 12 ratio 12-20 Total Protein 6.9 g/dL 5.8-7.8 Albumin 4.2 g/dL 3.5-4.8 Globulin 2.7 g/dL 2.0-3.5 A/G Ratio 1.6 Ratio 1.0-2.2 Total Bilirubin 0.9 mg/dL 0.3-1.2 Alkaline Phosphatase 65 U/L 24-140 Alt 32 U/L 5-45 Ast 27 U/L 12-40 Anion Gap 10 mmol/L 8-16 Non Anabela Egfr >60 >60 78 Anabela Egfr >60 >60 79 Lipid 04/04/2011 [facility] Cholesterol 243 mg/dL High 50-199 Triglycerides 225 mg/dL High 10-150 HDL 33 mg/dL 29-71 80 Chol/ HDL Ratio 7.4 ratio High 4.0-6.7 VLDL 45 mg/dL High 2-29 LDL (Calc) 165 mg/dL High 20-129 81 Laboratory test finding 04/04/2011 [facility] PSA 1.79 ng/mL 0.00-4.00 82 Vit D,25 Hydroxy 25 ng/mL Low 31-100 Hemoglobin A1c 6.0 % High 4.1-5.9 TST FR+T Adult Male -RL 04/04/2011 [facility] Testosterone 287 ng/dL Low 83 Sex Binding Glob 24 nmol/L 84 Testosterone Free 60 pg/mL 85 Testosterone % Free 2.1 % 86 CBC With Auto Diff 11/17/2009 [facility] (Do not Use) WBC 5.6 K/ul 4.0- 10.9 [facility] [place] [address] [phone] RBC 4.86 M/ul 4.70-6.10 Hemoglobin 14.9 GM/dl 13.5-18.0 Hematocrit 44.3 % 42.0-52.0 MCV 91.2 FL 80.0-97.0 MCH 30.7 pg 27.0-31.0 MCHC 33.7 g/dL 32.0-36.0 RDW 13.9 % 11.5-14.5 Platelet Count 286 K/ul 140-440 Neutrophils 55.7 % 50-70 Lymphocytes 32.5 % 20-44 Monocytes 8.0 % 2-9 Eosinophil 3.4 % 0-4 Basophil 0.4 % 0-2 Absolute Neutrophils 3.1 K/ul 2.05-7.63 Absolute Lymphocytes 1.8 K/ul 0.8-4.8 Absolute Monocytes 0.5 K/ul 0.1-1.0 Absolute Eosinophils 0.2 K/ul 0.1-0.5 Absolute Basophils 0.0 K/ul 0.0-0.3 Hematology Comment (Comm2) N/A CMP 11/17/2009 [facility] (Do not Use) Sodium 138 mmol/L 135-144 [facility] [place] [address] [phone] Potassium 4.9 mmol/L 3.6-5.2 Chloride 101 mmol/L 97-110 Carbon Dioxide 26 mmol/L 23-32 Glucose 95 mg/dL 70-105 BUN 10 mg/dL 6-22 Creatinine 1.1 mg/dL 0.5-1.3 BUN/CR 9 Ratio Calcium 9.5 mg/dL 8.6-10.2 Total Protein 6.6 g/dL 5.8-7.8 Albumin 4.2 g/dL 3.5-4.8 Globulin 2.4 g/dL 2.0-3.5 A/G Ratio 1.8 Ratio 1.0-2.2 Total Bilirubin 0.8 mg/dL 0.3-1.2 Alkaline Phosphatase 70 U/L 24-140 Alt 24 U/L 5-45 Ast 20 U/L 12-40 Anion Gap 16 mmol/L 8-16 GFR Calculation > 60 mL/min 60-175 87 GFR For > 60 mL/min 60-175 88 Lipid Panel 11/17/2009 [facility] (Do not Use) Cholesterol 225 mg/dL High 50-199 [facility] [place] [address] [phone] Triglycerides 107 mg/dL 10-150 HDL 34 mg/dL 29-71 89 Chol/HDL Ratio 6.6 Ratio 4.0-6.7 90 VLDL 21 mg/dL 2-29 LDL (Calc) 170 mg/dL High 20-129 91 Testosterone,FR&Tot Adult 11/17/2009 [facility] (Do not Use) Testosterone 326 ng/dL 92 Male-RL [facility] [place] [address] [phone] Sex Binding Globulin - LA 24 nmol/L 93 Testosterone-Free 69 pg/mL 94 Testosteron % Free-LA 2.1 % 95 Laboratory test 11/17/2009 [facility] (Do not Use) TSH 1.64 uIU/ml 0.34 -5.60 finding [facility] [place] [address] [phone] Vitamin D, 25 Hydroxy 39 ng/mL 31-100 PSA 0.86 ng/ml 0.00-4.00 96 CBC With Auto Diff 08/21/2007 [facility] (Do not Use) WBC 5.5 K/ul 4.0- 10.9 97 [facility] [place] [address] [phone] RBC 4.90 M/ul 4.70-6.10 Hemoglobin 14.9 GM/dl 13.5-18.0 Hematocrit 43.6 % 42.0-52.0 MCV 88.9 FL 80.0-97.0 MCH 30.5 pg 27.0-31.0 MCHC 34.2 g/dL 32.0-36.0 RDW 13.9 % 11.5-14.5 Platelet Count 250 K/ul 140-440 Neutrophils 62.8 % 50-70 Lymphocytes 24.7 % 20-44 Monocytes 10.7 % High 2-9 Eosinophil 1.5 % 0-4 Basophil 0.3 % 0-2 Absolute Neutrophils 3.4 K/ul 2.05-7.63 Absolute Lymphocytes 1.4 K/ul 0.8-4.8 Absolute Monocytes 0.6 K/ul 0.1-1.0 Absolute Eosinophils 0.1 K/ul 0.1-0.5 Absolute Basophils 0.0 K/ul Low 0.1-0.3 CMP 08/21/2007 [facility] (Do not Use) Sodium 137 mmol/L 135-144 [facility] [place] [address] [phone] Potassium 4.4 mmol/L 3.6-5.2 Chloride 104 mmol/L 97-110 Carbon Dioxide 26 mmol/L 23-33 Glucose 88 mg/dL 70-105 BUN 15 mg/dL 6-22 Creatinine 1.0 mg/dL 0.5-1.3 BUN/CR 15 Ratio 12.0-20.0 Calcium 9.5 mg/dL 8.6-10.2 Total Protein 7.1 g/dL 5.8-7.8 Albumin 4.4 g/dL 3.5-4.8 Globulin 2.7 g/dL 2.0-3.5 A/G Ratio 1.6 Ratio 1.0-2.2 Total Bilirubin 1.0 mg/dL 0.3-1.2 Alkaline Phosphatase 67 U/L 24-140 Alt 40 U/L 4-45 Ast 28 U/L 12-40 Anion Gap 11 mmol/L 8-16 GFR Calculation > 60 mL/min 98 GFR For > 60 mL/min 99 Lipid Panel 08/21/2007 [facility] (Do not Use) Cholesterol 239 mg/dL High 50-199 [facility] [place] [address] [phone] Triglycerides 161 mg/dL High 10-150 HDL 32 mg/dL 29-71 Chol/HDL Ratio 7.5 Ratio VLDL 32 mg/dL LDL (Calc) 175 mg/dL High 20-129 Laboratory test finding 08/21/2007 [facility] (Do not Use) Esr 29 MM/HR High 0-15 [place] [address] [phone] Folate 17.6 ng/ml 6.6-20.0 100 TSH 1.40 uIU/ml 0.34-5.60 Vitamin B12 340 pg/mL 180-914 Vitamin D, 25 Hydroxy 29 ng/mL 19-58 PSA 0.71 ng/ml 0.00-4.00 101 Testosterone,FR&Tot 08/21/2007 [facility] (Do not Use) Testosterone 272 ng /dL Low 102 [place] [address] [phone] Sex Binding Globulin - LA 26 nmol/L 103 Testosterone-Free 55 pg/mL 104 Testosteron % Free-LA 2.0 % 105 Lipid TX Panel 09/15/2006 [facility] (Do not Use) Ast 19 U/L 12-40 [place] [address] [phone] Alt 32 U/L 4-45 Cholesterol 133 mg/dL 50-199 Triglycerides 52 mg/dL 10-150 HDL 27 mg/dL Low 29-71 LDL (Calc) 96 mg/dL 20-129 Chol/HDL Ratio 4.9 Ratio VLDL 10 mg/dL Laboratory test 07/10/2006 [facility] (Do not Use) TSH 1.06 uIU/ml 0.34 -5.60 [place] [address] [phone] Hemoglobin A1c 5.8 % 4.1-6.5 CBC With Auto Diff 07/10/2006 [facility] (Do not Use) WBC 5.8 K/ul 4.0- 10.9 [place] [address] [phone] RBC 4.88 M/ul 4.70-6.10 Hemoglobin 14.9 GM/dl 13.5-18.0 Hematocrit 43.9 % 42.0-52.0 MCV 89.9 FL 80.0-97.0 MCH 30.6 pg 27.0-31.0 MCHC 34.0 g/dL 32.0-36.0 RDW 12.5 % 11.5-14.5 Platelet Count 283 K/ul 140-440 Neutrophils 54.9 % 50-70 Lymphocytes 33.9 % 20-44 Monocytes 8.6 % 2-9 Eosinophil 2.1 % 0-4 Basophil 0.5 % 0-2 Absolute Neutrophils 3.2 K/ul 2.05-7.63 Absolute Lymphocytes 2.0 K/ul 0.8-4.8 Absolute Monocytes 0.5 K/ul 0.1-1.0 Absolute Eosinophils 0.1 K/ul 0.1-0.5 Absolute Basophils 0.0 K/ul Low 0.1-0.3 CMP 07/10/2006 [facility] (Do not Use) Sodium 140 mmol/L 135-144 [facility] [place] [address] [phone] Potassium 4.7 mmol/L 3.6-5.2 Chloride 103 mmol/L 97-110 Carbon Dioxide 27 mmol/L 23-33 Glucose 85 mg/dL 70-105 BUN 13 mg/dL 6-22 Creatinine 1.0 mg/dL 0.5-1.3 BUN/CR 13 Ratio 12.0-20.0 Calcium 9.6 mg/dL 8.6-10.2 Total Protein 6.6 g/dL 5.8-7.8 Albumin 4.3 g/dL 3.5-4.8 Globulin 2.3 g/dL 2.0-3.5 A/G Ratio 1.9 Ratio 1.0-2.2 Total Bilirubin 0.8 mg/dL 0.3-1.2 Alkaline Phosphatase 63 U/L 24-140 Alt 33 U/L 4-45 Ast 24 U/L 12-40 Anion Gap 15 mmol/L 8-16 GFR White Male 85 GFR White Female 63 GFR Black Male 103 GFR Black Female 76 GFR Guidelines 0 106 Lipid Panel 07/10/2006 [facility] (Do not Use) Cholesterol 155 mg/dL 50 -199 [facility] [place] [address] [phone] Triglycerides 129 mg/dL 10-150 HDL 35 mg/dL 29-71 Chol/HDL Ratio 4.4 Ratio VLDL 26 mg/dL LDL (Calc) 94 mg/dL 20-129 Lipid TX Panel 08/16/2004 [facility] (Do not Use) Ast 42 U/L 8-42 [facility] [place], [place] [id number] [phone] Alt 75 U/L High 3-42 Cholesterol 158 mg/dL 50-199 Triglycerides 304 mg/dL High 30-200 HDL 39 mg/dL 29-71 LDL (Calc) Triglyceride brandi <SEE NOTE> mg/dL 20-129 107 Chol/HDL Ratio 4.1 Ratio VLDL 61 mg/dL Laboratory test 08/16/2004 [facility] (Do not Use) Direct LDL 93 mg/dL 20-129 finding [facility] [place], [place] [id number] [phone] Testosterone, Free 06/28/2004 [facility] (Do not Use) Testosterone, 329 ng /dL 241-827 And Total Panel [facility] Serum [place], [place] [id number] [phone] Free Testosterone(Direct) 8.7 pg/mL 6.8-21.5 CBC 06/28/2004 [facility] (Do not Use) WBC 5.5 K/ul 4.1-10.9 [facility] [place], [place] [id number] [phone] RBC 4.98 M/ul 4.20-6.30 Hemoglobin 15.1 GM/dl 12.0-16.0 Hematocrit 45.6 % 37.0-51.0 MCV 91.5 FL 80.0-97.0 MCH 30.3 pg 26.0-32.0 MCHC 33.1 g/dL 31.0-36.0 RDW 12.6 % 11.5-14.5 Platelet Count 304 K/ul 140-440 Neutrophils 54.1 % 50-70 Lymphocytes 33.3 % 20-44 Monocytes 9.6 % High 2-9 Eosinophil 2.6 % 0-4 Basophil 0.4 % 0-2 Absolute Neutrophils 3.1 K/ul 2.05-7.63 Absolute Lymphocytes 1.8 K/ul 0.8-4.8 Absolute Monocytes 0.5 K/ul 0.1-1.0 Absolute Eosinophils 0.1 K/ul 0.1-0.5 Absolute Basophils 0.0 K/ul Low 0.1-0.3 Laboratory test 06/28/2004 [facility] (Do not Use) TSH 1.65 uIU/ml 0.50 -6.00 finding [facility] [place], [place] [id number] [phone] Lipid TX Panel 06/28/2004 [facility] (Do not Use) Ast 23 U/L 8-42 [facility] [place], [place] [id number] [phone] Alt 36 U/L 3-42 Cholesterol 185 mg/dL 50-199 Triglycerides 276 mg/dL High 30-200 HDL 31 mg/dL 29-71 LDL (Calc) Triglyceride brandi <SEE NOTE> mg/dL 20-129 108 Chol/HDL Ratio 6.0 Ratio VLDL 55 mg/dL Laboratory test 06/28/2004 [facility] (Do not Use) Direct LDL 127 mg/dL 20-129 finding [facility] [place] [address] [phone] CBC 02/05/2004 [facility] (Do not Use) WBC 6.1 K/ul 4.1-10.9 [facility] [place] [address] [phone] RBC 5.03 M/ul 4.20-6.30 Hemoglobin 15.6 GM/dl 12.0-16.0 Hematocrit 46.3 % 37.0-51.0 MCV 92.0 FL 80.0-97.0 MCH 31.1 pg 26.0-32.0 MCHC 33.8 g/dL 31.0-36.0 RDW 12.0 % 11.5-14.5 Platelet Count 315 K/ul 140-440 Neutrophils 54.5 % 50-70 Lymphocytes 34.4 % 20-44 Monocytes 8.4 % 2-9 Eosinophil 1.8 % 0-4 Basophil 0.9 % 0-2 Absolute Neutrophils 3.3 K/ul 2.05-7.63 Absolute Lymphocytes 2.1 K/ul 0.8-4.8 Absolute Monocytes 0.5 K/ul 0.1-1.0 Absolute Eosinophils 0.1 K/ul 0.1-0.5 Absolute Basophils 0.1 K/ul 0.1-0.3 Iron Profile 02/05/2004 [facility] (Do not Use) Iron, 110 g/dL 65- 175 (Iron,Tibc,%Sat) [facility] [place] [address] [phone] Total Iron Binding Capacity 371 g/dL 261-478 % Iron Saturation 29.6 % 13.0-45.0 CBC 01/30/2004 [facility] (Do not Use) WBC 5.3 K/ul 4.1-10.9 [facility] [place] [address] [phone] RBC 4.86 M/ul 4.20-6.30 Hemoglobin 15.2 GM/dl 12.0-16.0 Hematocrit 44.2 % 37.0-51.0 MCV 91.0 FL 80.0-97.0 MCH 31.2 pg 26.0-32.0 MCHC 34.3 g/dL 31.0-36.0 RDW 12.3 % 11.5-14.5 Platelet Count 278 K/ul 140-440 Neutrophils 55.8 % 50-70 Lymphocytes 29.4 % 20-44 Monocytes 12.1 % High 2-9 Eosinophil 2.2 % 0-4 Basophil 0.5 % 0-2 Absolute Neutrophils 3.0 K/ul 2.05-7.63 Absolute Lymphocytes 1.6 K/ul 0.8-4.8 Absolute Monocytes 0.6 K/ul 0.1-1.0 Absolute Eosinophils 0.1 K/ul 0.1-0.5 Absolute Basophils 0.0 K/ul Low 0.1-0.3 CMP 01/30/2004 [facility] (Do not Use) Sodium 139 mmol/L 135-145 [facility] [place] [address] [phone] Potassium 5.0 mmol/L 3.4-5.3 Chloride 103 mmol/L 98-111 Carbon Dioxide 28 mmol/L 22-33 Glucose 88 mg/dL 70-105 BUN 20 mg/dL 6-26 Creatinine 1.2 mg/dL 0.5-1.5 BUN/CR 17 Ratio 12.0-20.0 Calcium 9.3 mg/dL 8.6-10.3 Total Protein 7.0 g/dL 6.2-8.3 Albumin 4.2 g/dL 3.5-5.0 Globulin 2.8 g/dL 2.7-4.3 A/G Ratio 1.5 Ratio 1.0-2.2 Total Bilirubin 0.9 mg/dL 0.1-1.3 Ast 24 U/L 8-42 Alt 31 U/L 3-42 Alkaline Phosphatase 60 U/L 24-108 Anion Gap 13 mmol/L 10-20 Lipid Panel 01/30/2004 [facility] (Do not Use) Cholesterol 226 mg/dL High 50-199 [facility] [place] [address] [phone] Triglycerides 151 mg/dL 30-200 HDL 45 mg/dL 29-71 Chol/HDL Ratio 5.0 Ratio VLDL 30 mg/dL LDL (Calc) 151 mg/dL High 20-129 Laboratory test 01/30/2004 [facility] (Do not Use) Helicobacter 0.47 0- 0.9 109 finding [facility] Pyl[place] ([place] [address] Pylori), Igg [phone] CBC 01/14/2003 [facility] (Do not Use) WBC 6.3 K/ul 4.1-10.9 [facility] [place] [address] [phone] RBC 4.80 M/ul 4.20-6.30 Hemoglobin 15.3 GM/dl 12.0-16.0 Hematocrit 44.1 % 37.0-51.0 MCV 91.8 FL 80.0-97.0 MCH 31.8 pg 26.0-32.0 MCHC 34.6 g/dL 31.0-36.0 RDW 11.9 % 11.5-14.5 Platelet Count 266 K/ul 140-440 Neutrophils 52.8 % 50-70 Lymphocytes 33.5 % 20-44 Monocytes 9.9 % High 2-9 Eosinophil 2.9 % 0-4 Basophil 0.9 % 0-2 Absolute Neutrophils 3.3 K/ul 2.05-7.63 Absolute Lymphocytes 2.1 K/ul 0.8-4.8 Absolute Monocytes 0.6 K/ul 0.1-1.0 Absolute Eosinophils 0.2 K/ul 0.1-0.5 Absolute Basophils 0.1 K/ul 0.1-0.3 Laboratory test 01/14/2003 [facility] (Do not Use) PSA 0.66 ng/ml 0.00- 4.00 110 finding [facility] [place] [address] [phone] CMP 01/14/2003 [facility] (Do not Use) Sodium 141 mmol/L 135-145 [facility] [place] [address] [phone] Potassium 4.6 mmol/L 3.4-5.3 Chloride 105 mmol/L 98-111 Carbon Dioxide 25 mmol/L 22-33 Glucose 94 mg/dL 70-105 BUN 14 mg/dL 6-26 Creatinine 1.1 mg/dL 0.5-1.5 BUN/CR 13 Ratio 12.0-20.0 Calcium 9.4 mg/dL 8.6-10.3 Total Protein 7.0 g/dL 6.2-8.3 Albumin 4.5 g/dL 3.5-5.0 Globulin 2.5 g/dL Low 2.7-4.3 A/G Ratio 1.8 Ratio 1.0-2.2 Total Bilirubin 0.7 mg/dL 0.1-1.3 Ast 28 U/L 8-42 Alt 36 U/L 3-42 Alkaline Phosphatase 63 U/L 24-108 Anion Gap 16 mmol/L 10-20 Lipid Panel 01/14/2003 [facility] (Do not Use) Cholesterol 177 mg/dL 50 -199 [facility] [place] [address] [phone] Triglycerides 251 mg/dL High 30-200 111 HDL 33 mg/dL 29-71 Chol/HDL Ratio 5.4 Ratio VLDL 50 mg/dL LDL (Calc) Triglyceride brandi <SEE NOTE> mg/dL 20-129 112 Laboratory test 01/14/2003 [facility] (Do not Use) Direct LDL 114 mg/dL 20-129 finding [facility] [place] [address] [phone] CBC 01/03/2002 [facility] (Do not Use) WBC 5.4 K/ul 4.1-10.9 [facility] [place] [address] [phone] RBC 4.91 M/ul 4.2-6.3 Hemoglobin 14.6 GM/dl 12.0-16.0 Hematocrit 45.6 % 37.0-51.0 MCV 92.8 FL 80-97 MCH 29.8 pg 26.0-32.0 MCHC 32.1 g/dL 31.0-36.0 RDW 12.2 % 11.5-14.5 Platelet Count 326 K/ul 140-440 Neutrophils 54.5 % 50-70 Lymphocytes 32.0 % 20-44 Monocytes 10.0 % High 2-9 Eosinophil 2.5 % 0-4 Basophil 1.0 % 0-2 Absolute Neutrophils 3.0 K/ul 2.05-7.63 Absolute Lymphocytes 1.7 K/ul 0.8-4.8 Absolute Monocytes 0.5 K/ul 0.1-1.0 Absolute Eosinophils 0.1 K/ul 0.1-0.5 Absolute Basophils 0.1 K/ul 0.1-0.3 Laboratory test finding 01/03/2002 [facility] (Do not Use) Esr 5 MM/HR 0-15 [facility] [place] [address] [phone] PSA 0.61 ng/ml 0.00-4.00 113 TSH 1.34 uIU/ml 0.50-6.00 Vitamin B12 591 pg/mL 230-1050 Folate FOLATE RESULT GR <SEE NOTE> ng/ml 3.0-16.0 114 Ferritin 149.8 ng/ml 22-340 CMP 01/03/2002 [facility] (Do not Use) Sodium 141 mmol/L 137-145 [facility] [place] [address] [phone] Potassium 5.0 mmol/L 3.6-5.0 Chloride 104 mmol/L 98-107 Carbon Dioxide 26 mmol/L 22-30 Glucose 103 mg/dL 75-110 BUN 15 mg/dL 9-21 Creatinine, Serum 1.1 mg/dL 0.8-1.5 BUN/CR Ratio 13.7 Ratio 12-20 Calcium 9.5 mg/dL 8.7-10.5 Total Protein 7.2 g/dL 6.3-8.2 Albumin 4.2 g/dL 3.5-5.0 Globulin 3.0 g/dL 2.7-4.3 A/G Ratio 1.4 1.0-2.2 Total Bilirubin 0.3 mg/dL 0.2-1.3 Ast 31 U/L 17-59 Alt 49 U/L 21-72 Alkaline Phosphatase 74 U/L 38-126 Lipid Panel 01/03/2002 [facility] (Do not Use) Cholesterol 134 mg/dL 50 -199 [facility] [place] [address] [phone] Triglycerides 89 mg/dL 30-249 HDL Cholesterol 47 mg/dL 29-67 LDL(Calc) 70 mg/dL 20-129 Chol/HDL Ratio 2.86 115 VLDL Cholesterol 18 mg/dL Basic (BMP) 10/23/2001 [facility] (Do not Use) Sodium 141 mmol/L 137- 145 [facility] [place] [address] [phone] Potassium 4.8 mmol/L 3.6-5.0 Chloride 107 mmol/L 98-107 Carbon Dioxide 24 mmol/L 22-30 Glucose 102 mg/dL 75-110 BUN 12 mg/dL 9-21 Creatinine, Serum 1.0 mg/dL 0.8-1.5 BUN/CR Ratio 13.1 Ratio 12-20 Anion Gap 15 mmol/L 10-20 Calcium 9.1 mg/dL 8.7-10.5 Lipid TX Panel 10/23/2001 [facility] (Do not Use) Ast 29 U/L 17-59 [facility] [place] [address] [phone] Alt 40 U/L 21-72 Cholesterol 147 mg/dL 50-199 Triglycerides 115 mg/dL 30-249 HDL Cholesterol 43 mg/dL 29-67 LDL(Calc) 81 mg/dL 20-129 Chol/HDL Ratio 3.41 116 VLDL Cholesterol 23 mg/dL 1 This sample is drawn by:TANES[facility]. 2 Updated reference range on new analyzer 3 Updated reference range on new analyzer 4 Updated reference range 08-15-2018 5 Concerning GFR Guidelines for Americans: Normal function or mild renal disease, if clinically at risk: >/=60 mL/min Moderately decreased: 30-59 Severely decreased: 15-29 Renal failure: <15 There is reduced accuracy above 60ml/min/1.73 m squared, but the numeric value may be clinically useful in the near 60 range 6 Concerning GFR Guidelines: Normal function or mild renal disease, if clinically at risk: >/=60 mL/min Moderately decreased: 30-59 Severely decreased: 15-29 Renal failure: <15 There is reduced accuracy above 60ml/min/1.73 m squared, but the numeric value may be clinically useful in the near 60 range Glomerular Filtration Rate (GFR) is estimated based on the CKD-EPI equation, which assumes a steady state for creatinine as recommended by the National Kidney Disease Education Program in conjunction with the National Institutes of Health and the National Kidney Foundation. Clinical conditions in which it may be necessary to measure GFR by using clearance methods include extremes of age and body size, severe malnutrition or obesity, diseases of skeletal muscle, paraplegia or quadriplegia, vegetarian diet, rapidly changing kidney function, and calculation of the dose of potentially toxic drugs that are excreted by the kidneys. 7 Updated Reference Range 8 Per NCEP ATP III Guidelines: Results lower than 40 mg/dL are suggestive of increased risk for coronary artery disease. Results > or=to 60 mg/dL are considered a negative risk factor. 9 Per NCEP ATP III Guidelines: Normal Population <130 Patients with medical conditions: CHD/DM Optimal: <100 Borderline high: 130-159 High: 160-189 Very high: >189 10 Clinical Guidelines for recommended serum 25(OH)Vitamin D Deficient at less than 20 ng/mL Insufficient at 20 to <30 ng/mL Sufficient at 30-100 ng/mL Toxicity at greater than 100 ng/mL 11 Beginning 06/12/06 PSA values assayed at [facility] uses chemiluminescence methodology manufactured by [employer] for use on the DXI analyzer. Values obtained with different assay methods or kits can not be used interchangeably. Serum PSA measurement is not an absolute test for malignancy. The PSA value should be used in conjunction with information available from clinical evaluation and other diagnostic procedures. 12 Updated reference range on new analyzer 13 Updated reference range on new analyzer 14 Updated Reference Range 15 Concerning GFR Guidelines for Americans: Normal function or mild renal disease, if clinically at risk: >/=60 mL/min Moderately decreased: 30-59 Severely decreased: 15-29 Renal failure: <15 16 Concerning GFR Guidelines: Normal function or mild renal disease, if clinically at risk: >/=60 mL/min Moderately decreased: 30-59 Severely decreased: 15-29 Renal failure: <15 Glomerular Filtration Rate (GFR) is estimated based on the MDRD equation, which assumes a steady state for creatinine as recommended by the National Kidney Disease Education Program in conjunction with the National Institutes of Health and the National Kidney Foundation. Clinical conditions in which it may be necessary to measure GFR by using clearance methods include extremes of age and body size, severe malnutrition or obesity, diseases of skeletal muscle, paraplegia or quadriplegia, vegetarian diet, rapidly changing kidney function, and calculation of the dose of potentially toxic drugs that are excreted by the kidneys. 17 Per NCEP ATP III Guidelines: Results lower than 40 mg/dL are suggestive of increased risk for coronary artery disease. Results > or=to 60 mg/dL are considered a negative risk factor. 18 Per NCEP ATP III Guidelines: Normal Population <130 Patients with medical conditions: CHD/DM Optimal: <100 Borderline high: 130-159 High: 160-189 Very high: >189 19 Clinical Guidelines for recommended serum 25(OH)Vitamin D Deficient at less than 20 ng/mL Insufficient at 20 to <30 ng/mL Sufficient at 30-100 ng/mL Toxicity at greater than 100 ng/mL 20 [place] [address] Surgical Pathology Report Specimen(s) Received A: Left neck Clinical Diagnosis and History Left neck. Diagnosis SKIN, LEFT NECK SQUAMOUS PAPILLOMA. Gross Description Specimen received in formalin labeled with the patient's name is a 0.5 x 0.2 cm dela cruz-rashid skin shave with a central 0.3 x 0.2 x 0.1 cm wrinkled to lobulated rashid polypoid lesion. The specimen is inked, bisected transversely and is entirely submitted in one cassette. (1 block) emg rff/rce Technical component processed at [facility], Histopathology, [address] [place] [address], [facility]. Diagnosis and reporting performed at [facility], [address] [place] [address]. Reported: 01/27/2017 18:15 Electronically Signed Out By Brandi Lozano M.D. emg This report may include immunohistochemical or in-situ hybridization results. Testing was developed and the performance characteristics determined by [facility] as required by CLIA '88. The FDA has determined that approval for specific use is not necessary for clinical use. The quality of all stains including positive and negative controls for all immunohistochemical and/or special stains were reviewed and considered appropriate ICD9 Codes L90.9 CPT4 codes A: 76883X Unless otherwise specified, testing performed by [facility], [place] [address] 21 Per NCEP ATP III Guidelines: Results lower than 40 mg/dL are suggestive of increased risk for coronary artery disease. Results > or=to 60 mg/dL are considered a negative risk factor. 22 Per NCEP ATP III Guidelines: Normal Population <130 Patients with medical conditions: CHD/DM Optimal: <100 Borderline high: 130-159 High: 160-189 Very high: >189 23 Updated reference range on new analyzer 24 Updated reference range on new analyzer 25 Concerning GFR Guidelines for Americans: Normal function or mild renal disease, if clinically at risk: >/=60 mL/min Moderately decreased: 30-59 Severely decreased: 15-29 Renal failure: <15 26 Concerning GFR Guidelines: Normal function or mild renal disease, if clinically at risk: >/=60 mL/min Moderately decreased: 30-59 Severely decreased: 15-29 Renal failure: <15 Glomerular Filtration Rate (GFR) is estimated based on the MDRD equation, which assumes a steady state for creatinine as recommended by the National Kidney Disease Education Program in conjunction with the National Institutes of Health and the National Kidney Foundation. Clinical conditions in which it may be necessary to measure GFR by using clearance methods include extremes of age and body size, severe malnutrition or obesity, diseases of skeletal muscle, paraplegia or quadriplegia, vegetarian diet, rapidly changing kidney function, and calculation of the dose of potentially toxic drugs that are excreted by the kidneys. 27 Updated reference range on new analyzer 28 Updated reference range on new analyzer 29 Updated reference range on new analyzer 30 Concerning GFR Guidelines for Americans: Normal function or mild renal disease, if clinically at risk: >/=60 mL/min Moderately decreased: 30-59 Severely decreased: 15-29 Renal failure: <15 31 Concerning GFR Guidelines: Normal function or mild renal disease, if clinically at risk: >/=60 mL/min Moderately decreased: 30-59 Severely decreased: 15-29 Renal failure: <15 Glomerular Filtration Rate (GFR) is estimated based on the MDRD equation, which assumes a steady state for creatinine as recommended by the National Kidney Disease Education Program in conjunction with the National Institutes of Health and the National Kidney Foundation. Clinical conditions in which it may be necessary to measure GFR by using clearance methods include extremes of age and body size, severe malnutrition or obesity, diseases of skeletal muscle, paraplegia or quadriplegia, vegetarian diet, rapidly changing kidney function, and calculation of the dose of potentially toxic drugs that are excreted by the kidneys. 32 Updated reference range on new analyzer 33 Per NCEP ATP III Guidelines: Results lower than 40 mg/dL are suggestive of increased risk for coronary artery disease. Results > or=to 60 mg/dL are considered a negative risk factor. 34 Per NCEP ATP III Guidelines: Normal Population <130 Patients with medical conditions: CHD/DM Optimal: <100 Borderline high: 130-159 High: 160-189 Very high: >189 35 Updated reference range on new analyzer 36 Updated reference range on new analyzer 37 Concerning GFR Guidelines for Americans: Normal function or mild renal disease, if clinically at risk: >/=60 mL/min Moderately decreased: 30-59 Severely decreased: 15-29 Renal failure: <15 38 Concerning GFR Guidelines: Normal function or mild renal disease, if clinically at risk: >/=60 mL/min Moderately decreased: 30-59 Severely decreased: 15-29 Renal failure: <15 Glomerular Filtration Rate (GFR) is estimated based on the MDRD equation, which assumes a steady state for creatinine as recommended by the National Kidney Disease Education Program in conjunction with the National Institutes of Health and the National Kidney Foundation. Clinical conditions in which it may be necessary to measure GFR by using clearance methods include extremes of age and body size, severe malnutrition or obesity, diseases of skeletal muscle, paraplegia or quadriplegia, vegetarian diet, rapidly changing kidney function, and calculation of the dose of potentially toxic drugs that are excreted by the kidneys. 39 Updated reference range on new analyzer 40 Per NCEP ATP III Guidelines: Results lower than 40 mg/dL are suggestive of increased risk for coronary artery disease. Results > or=to 60 mg/dL are considered a negative risk factor. 41 Per NCEP ATP III Guidelines: Normal Population <130 Patients with medical conditions: CHD/DM Optimal: <100 Borderline high: 130-159 High: 160-189 Very high: >189 42 Beginning 06/12/06 PSA values assayed at [facility] uses chemiluminescence methodology manufactured by [employer] for use on the DXI analyzer. Values obtained with different assay methods or kits can not be used interchangeably. Serum PSA measurement is not an absolute test for malignancy. The PSA value should be used in conjunction with information available from clinical evaluation and other diagnostic procedures. 43 Concerning GFR Guidelines for Americans: Normal function or mild renal disease, if clinically at risk: >/=60 mL/min Moderately decreased: 30-59 Severely decreased: 15-29 Renal failure: <15 44 Concerning GFR Guidelines: Normal function or mild renal disease, if clinically at risk: >/=60 mL/min Moderately decreased: 30-59 Severely decreased: 15-29 Renal failure: <15 Glomerular Filtration Rate (GFR) is estimated based on the MDRD equation, which assumes a steady state for creatinine as recommended by the National Kidney Disease Education Program in conjunction with the National Institutes of Health and the National Kidney Foundation. Clinical conditions in which it may be necessary to measure GFR by using clearance methods include extremes of age and body size, severe malnutrition or obesity, diseases of skeletal muscle, paraplegia or quadriplegia, vegetarian diet, rapidly changing kidney function, and calculation of the dose of potentially toxic drugs that are excreted by the kidneys. 45 456 Specimen Moderately Lipemic 46 Per NCEP ATP III Guidelines: Results lower than 40 mg/dL are suggestive of increased risk for coronary artery disease. Results > or=to 60 mg/dL are considered a negative risk factor. 47 Per NCEP ATP III Guidelines: Normal population: <130 Patients with medical conditions: CHD/DM Optimal range: <100 Borderline high: 130-159 High: 160-189 Very high: >189 48 Concerning GFR Guidelines for Americans: Normal function or mild renal disease, if clinically at risk: >/=60 mL/min Moderately decreased: 30-59 Severely decreased: 15-29 Renal failure: <15 49 Concerning GFR Guidelines: Normal function or mild renal disease, if clinically at risk: >/=60 mL/min Moderately decreased: 30-59 Severely decreased: 15-29 Renal failure: <15 Glomerular Filtration Rate (GFR) is estimated based on the MDRD equation, which assumes a steady state for creatinine as recommended by the National Kidney Disease Education Program in conjunction with the National Institutes of Health and the National Kidney Foundation. Clinical conditions in which it may be necessary to measure GFR by using clearance methods include extremes of age and body size, severe malnutrition or obesity, diseases of skeletal muscle, paraplegia or quadriplegia, vegetarian diet, rapidly changing kidney function, and calculation of the dose of potentially toxic drugs that are excreted by the kidneys. 50 A Negative serologic test for Lyme Disease indicates no serologic evidence of infection with B burgdorferi at the time this specimen was collected. A repeat specimen should be collected in 2 to 4 weeks if clinically indicated. Unless otherwise specified, testing performed by [facility] [address] [place] [address] 51 Reference range: 0 to 19 Unit: Units INTERPRETIVE INFORMATION: Cyclic Citrullinated Peptide Antibody, IgG 19 Units or less ................... Negative 20-39 Units ........................ Weak Positive 40-59 Units ........................ Moderate Positive 60 Units or greater ................ Strong Positive Anti-cyclic citrullinated peptide (anti-CCP), IgG antibodies are present in about 69-83 percent of patients with rheumatoid arthritis (RA) and have specificities of 93-95 percent. These autoantibodies may be present in the preclinical phase of disease, are associated with future RA development, and may predict radiographic joint destruction. Patients with weak positive results should be monitored and testing repeated. Performed by [facility], [address] [place] [id number] [email or web address], Peyman Stlyes MD, Lab. Director Unless otherwise specified, testing performed by [facility] [address] [place] [address] 52 IgG antibody to Rubella detected. IgG antibody levels are at a level considered to indicate positive immunity. Unless otherwise specified, testing performed by [facility] [address] [place] [address] 53 IgG antibody to Measles detected. This may indicate that the patient was exposed to Measles through infection or vaccination. Unless otherwise specified, testing performed by [facility] [address] [place] [id number] 54 IgG antibody to Mumps detected. This may indicate that the patient was exposed to Mumps through infection or vaccination. Unless otherwise specified, testing performed by [facility] [address] [place] [id number] 55 Beginning 06/12/06 PSA values assayed at [facility] uses an EIA methodology manufactured by [employer] for use on the DXI analyzer. Values obtained with different assay methods or kits can not be used interchangeably. Serum PSA measurement is not an absolute test for malignancy. The PSA value should be used in conjunction with information available from clinical evaluation and other diagnostic procedures. 56 Per NCEP ATP III Guidelines: Results lower than 40 mg/dL are suggestive of increased risk for coronary artery disease. Results > or=to 60 mg/dL are considered a negative risk factor. 57 Per NCEP ATP III Guidelines: Normal Population <130 Patients with medical conditions: CHD/DM Optimal: <100 Borderline high: 130-159 High: 160-189 Very high: >189 58 Concerning GFR Guidelines for Americans: Normal function or mild renal disease, if clinically at risk: >/=60 mL/min Moderately decreased: 30-59 Severely decreased: 15-29 Renal failure: <15 59 Concerning GFR Guidelines: Normal function or mild renal disease, if clinically at risk: >/=60 mL/min Moderately decreased: 30-59 Severely decreased: 15-29 Renal failure: <15 Glomerular Filtration Rate (GFR) is estimated based on the MDRD equation, which assumes a steady state for creatinine as recommended by the National Kidney Disease Education Program in conjunction with the National Institutes of Health and the National Kidney Foundation. Clinical conditions in which it may be necessary to measure GFR by using clearance methods include extremes of age and body size, severe malnutrition or obesity, diseases of skeletal muscle, paraplegia or quadriplegia, vegetarian diet, rapidly changing kidney function, and calculation of the dose of potentially toxic drugs that are excreted by the kidneys. 60 Laboratory [place] [address] Surgical Pathology Report Specimen(s) Received A: Right axilla Clinical Diagnosis and History Gross Description Specimen received in formalin labeled with the patient's name is an ovoid, polypoid, rashid pink and wrinkled skin fragment measuring 0.5 x 0.4 x 0.4 cm. The resection margin is inked black. The specimen is bisected and totally submitted in one cassette. (The measurements of the specimen may be less than those in vivo due to tissue shrinkage during histologic fixation and processing.) paw eb/mwg Diagnosis SKIN, RIGHT AXILLA: Benign skin tag with focal chronic inflammation. Multiple levels examined. Technical component processed at [facility], Histopathology, [address] [place] [address] [place], [facility]. Diagnosis and reporting performed at [facility], [address] [place] [address]. Reported: 12/12/2014 09:00 Electronically Signed Out By Jacob Weaver MD [employer] ICD9 Codes 701.9 Unless otherwise specified, testing performed by [facility] [employer] [place] [address] 61 Concerning GFR Guidelines for Americans: Normal function or mild renal disease, if clinically at risk: >/=60 mL/min Moderately decreased: 30-59 Severely decreased: 15-29 Renal failure: <15 62 Concerning GFR Guidelines: Normal function or mild renal disease, if clinically at risk: >/=60 mL/min Moderately decreased: 30-59 Severely decreased: 15-29 Renal failure: <15 Glomerular Filtration Rate (GFR) is estimated based on the MDRD equation, which assumes a steady state for creatinine as recommended by the National Kidney Disease Education Program in conjunction with the National Institutes of Health and the National Kidney Foundation. Clinical conditions in which it may be necessary to measure GFR by using clearance methods include extremes of age and body size, severe malnutrition or obesity, diseases of skeletal muscle, paraplegia or quadriplegia, vegetarian diet, rapidly changing kidney function, and calculation of the dose of potentially toxic drugs that are excreted by the kidneys. 63 707 Specimen Moderately Lipemic 64 Per NCEP ATP III Guidelines: Results lower than 40 mg/dL are suggestive of increased risk for coronary artery disease. Results > or=to 60 mg/dL are considered a negative risk factor. 65 Specimen moderately lipemic. 66 Per NCEP ATP III Guidelines: Normal population: <130 Patients with medical conditions: CHD/DM Optimal range: <100 Borderline high: 130-159 High: 160-189 Very high: >189 67 This sample is drawn by: 68 May indicate a current or previous infection. 69 May indicate a current or previous infection. Unless otherwise specified, testing performed by [employer] [facility] [place] [address] 70 Results verified by repeat analysis 71 Concerning GFR Guidelines: Normal function or mild renal disease, if clinically at risk: >/=60 mL/min Moderately decreased: 30-59 Severely decreased: 15-29 Renal failure: <15 Glomerular Filtration Rate (GFR) is estimated based on the MDRD equation, which assumes a steady state for creatinine as recommended by the National Kidney Disease Education Program in conjunction with the National Institutes of Health and the National Kidney Foundation. Clinical conditions in which it may be necessary to measure GFR by using clearance methods include extremes of age and body size, severe malnutrition or obesity, diseases of skeletal muscle, paraplegia or quadriplegia, vegetarian diet, rapidly changing kidney function, and calculation of the dose of potentially toxic drugs that are excreted by the kidneys. 72 Concerning GFR Guidelines for Americans: Normal function or mild renal disease, if clinically at risk: >/=60 mL/min Moderately decreased: 30-59 Severely decreased: 15-29 Renal failure: <15 73 This sample is drawn by:[facility]. 74 Per NCEP ATP III Guidelines: Results lower than 40 mg/dL are suggestive of increased risk for coronary artery disease. Results > or=to 60 mg/dL are considered a negative risk factor. 75 Per NCEP ATP III Guidelines: Optimal: <100 Near optimal: 100-129 Borderline high: 130-159 High: 160-189 Very high: >189 76 Concerning GFR Guidelines: Normal function or mild renal disease, if clinically at risk: >/=60 mL/min Moderately decreased: 30-59 Severely decreased: 15-29 Renal failure: <15 Glomerular Filtration Rate (GFR) is estimated based on the MDRD equation, which assumes a steady state for creatinine as recommended by the National Kidney Disease Education Program in conjunction with the National Institutes of Health and the National Kidney Foundation. Clinical conditions in which it may be necessary to measure GFR by using clearance methods include extremes of age and body size, severe malnutrition or obesity, diseases of skeletal muscle, paraplegia or quadriplegia, vegetarian diet, rapidly changing kidney function, and calculation of the dose of potentially toxic drugs that are excreted by the kidneys. 77 Concerning GFR Guidelines for Americans: Normal function or mild renal disease, if clinically at risk: >/=60 mL/min Moderately decreased: 30-59 Severely decreased: 15-29 Renal failure: <15 78 Concerning GFR Guidelines: Normal function or mild renal disease, if clinically at risk: >/=60 mL/min Moderately decreased: 30-59 Severely decreased: 15-29 Renal failure: <15 Glomerular Filtration Rate (GFR) is estimated based on the MDRD equation, which assumes a steady state for creatinine as recommended by the National Kidney Disease Education Program in conjunction with the National Institutes of Health and the National Kidney Foundation. Clinical conditions in which it may be necessary to measure GFR by using clearance methods include extremes of age and body size, severe malnutrition or obesity, diseases of skeletal muscle, paraplegia or quadriplegia, vegetarian diet, rapidly changing kidney function, and calculation of the dose of potentially toxic drugs that are excreted by the kidneys. 79 Concerning GFR Guidelines for Americans: Normal function or mild renal disease, if clinically at risk: >/=60 mL/min Moderately decreased: 30-59 Severely decreased: 15-29 Renal failure: <15 80 Per NCEP ATP III Guidelines: Results lower than 40 mg/dL are suggestive of increased risk for coronary artery disease. Results > or=to 60 mg/dL are considered a negative risk factor. 81 Per NCEP ATP III Guidelines: Optimal: <100 Near optimal: 100-129 Borderline high: 130-159 High: 160-189 Very high: >189 82 Beginning 06/12/06 PSA values assayed at [facility] uses an EIA methodology manufactured by [employer] for use on the DXI analyzer. Values obtained with different assay methods or kits can not be used interchangeably. Serum PSA measurement is not an absolute test for malignancy. The PSA value should be used in conjunction with information available from clinical evaluation and other diagnostic procedures. 83 Reference range: 300 to 890 Test Information: Testosterone, Adult Male To convert to nmol/L, multiply ng/dL by 0.0347. 84 Reference range: 11 to 80 85 Reference range: 47 to 244 REFERENCE INTERVAL: Testosterone, Free Brennan Stage IV 35 - 169 pg/mL Brennan Stage V 41 - 239 pg/mL To convert to pmol/L, multiply pg/mL by 3.47. The concentration of Free Testosterone is derived from a mathematical expression based on the constant for the binding of testosterone to sex hormone binding globulin. 86 Reference range: 1.6 to 2.9 Performed by [facility], [address] [place] [id number] [email or web address], Jayleen Galeas MD, Lab. Director Unless otherwise specified, testing performed by [facility] [address] [place] [id number] 87 Concerning GFR GUIDELINES: Normal Function or Mild Renal Disease, if clinically at risk: >/=60mL/min Moderately decreased: 30-59 Severely decreased: 15-29 Renal Failure: <15 Glomerular Filtration Rate (GFR) is estimated based on the MDRD equation, which assumes a steady state for creatinine as recommended by the National Kidney Disease Education Program in conjunction with the National Institutes of Health and the National Kidney Foundation. Clinical conditions in which it may be necessary to measure GFR by using clearance methods include extremes of age and body size, severe malnutrition or obesity, diseases of skeletal muscle, paraplegia or quadriplegia, vegetarian diet, rapidly changing kidney function, and calculation of the dose of potentially toxic drugs that are excreted by the kidneys. 88 Concerning GFR GUIDELINES: Normal Function or Mild Renal Disease, if clinically at risk: >/=60mL/min Moderately decreased: 30-59 Severely decreased: 15-29 Renal Failure: <15 89 PER NCEP ATP III GUIDELINES: RESULTS LOWER THAN 40 MG/DL ARE SUGGESTIVE OF INCREASED RISK FOR CORONARY ARTERY DISEASE. RESULTS > OR=TO 60 MG/DL ARE CONSIDERED A NEGATIVE RISK FACTOR. 90 INTERPRETATION OF CHOL-HDL RATIO CHD RISK FEMALE MALE VERY HIGH >8.3 >14.3 HIGH 5.6 - 8.3 6.7 - 14.3 AVERAGE 3.7 - 5.6 4.0 - 6.7 BELOW AVERAGE 2.5 - 3.7 2.7 - 4.0 PROTECTED <2.5 <2.7 91 PER NCEP ATP III GUIDELINES: OPTIMAL: <100 NEAR OPTIMAL: 100 - 129 BORDERLINE HIGH: 130 - 159 HIGH: 160 - 189 VERY HIGH: >189 92 Reference range: 300 to 890 Test Information: Testosterone, Adult Male To convert to nmol/L, multiply ng/dL by 0.0347. 93 Reference range: 11 to 80 94 Reference range: 47 to 244 REFERENCE INTERVAL: Testosterone, Free Brennan Stage IV 35 - 169 pg/mL Brennan Stage V 41 - 239 pg/mL To convert to pmol/L, multiply pg/mL by 3.47. The concentration of Free Testosterone is derived from a mathematical expression based on the constant for the binding of testosterone to sex hormone binding globulin. 95 Reference range: 1.6 to 2.9 Performed by [facility], [address] [place] [id number] [email or web address], Jayleen Galeas MD, Lab. Director Unless otherwise specified, testing performed by [facility] [address] [place] [id number] 96 BEGINNING 06/12/06, PSA VALUES ASSAYED AT [facility] USES AN EIA METHODOLOGY MANUFACTURED BY [employer] FOR USE ON THE DXI ANALYZER. VALUES OBTAINED WITH DIFFERENT ASSAY METHODS OR KITS CAN NOT BE USED INTERCHANGEABLY. SERUM PSA MEASUREMENT IS NOT AN ABSOLUTE TEST FOR MALIGNANCY, THE PSA VALUE SHOULD BE USED IN CONJUNCTION WITH INFORMATION AVAILABLE FROM CLINICAL EVALUATION AND OTHER DIAGNOSTIC PROCEDURES. 97 FASTING 98 Concerning GFR GUIDELINES: Normal Function or Mild Renal Disease, if clinically at risk: >/=60mL/min Moderately decreased: 30-59 Severely decreased: 15-29 Renal Failure: <15 Glomerular Filtration Rate (GFR) is estimated based on the MDRD equation, which assumes a steady state for creatinine as recommended by the National Kidney Disease Education Program in conjunction with the National Institutes of Health and the National Kidney Foundation. Clinical conditions in which it may be necessary to measure GFR by using clearance methods include extremes of age and body size, severe malnutrition or obesity, diseases of skeletal muscle, paraplegia or quadriplegia, vegetarian diet, rapidly changing kidney function, and calculation of the dose of potentially toxic drugs that are excreted by the kidneys. 99 Concerning GFR GUIDELINES: Normal Function or Mild Renal Disease, if clinically at risk: >/=60mL/min Moderately decreased: 30-59 Severely decreased: 15-29 Renal Failure: <15 100 REFERENCE RANGE FOR FOLATE: GREATER THAN 6.6 ng/mL 101 BEGINNING 06/12/06, PSA VALUES ASSAYED AT [facility] USES AN EIA METHODOLOGY MANUFACTURED BY [employer] FOR USE ON THE DXI ANALYZER. VALUES OBTAINED WITH DIFFERENT ASSAY METHODS OR KITS CAN NOT BE USED INTERCHANGEABLY. SERUM PSA MEASUREMENT IS NOT AN ABSOLUTE TEST FOR MALIGNANCY, THE PSA VALUE SHOULD BE USED IN CONJUNCTION WITH INFORMATION AVAILABLE FROM CLINICAL EVALUATION AND OTHER DIAGNOSTIC PROCEDURES. 102 Reference range: 350 to 890 REFERENCE INTERVAL: Testosterone, Adult Male Brennan Stage IV 165 - 854 ng/dL Brennan Stage V 194 - 783 ng/dL To convert to nmol/L, multiply ng/dL by 0.0347. 103 Reference range: 11 to 80 104 Reference range: 47 to 244 REFERENCE INTERVAL: Testosterone, Free Brennan Stage IV 35 - 169 pg/mL Brennan Stage V 41 - 239 pg/mL To convert to pmol/L, multiply pg/mL by 3.47. The concentration of Free Testosterone is derived from a mathmatical expression based on the constant for the binding of testosterone to sex hormone binding globulin. 105 Reference range: 1.6 to 2.9 Performed by [facility], [address] [place] [id number] www.[email or web address], Joe Banks MD - Lab. Director 106 Normal Function or Mild Renal Disease, if clinically at risk: >/=60 mL/ min Moderately decreased: 30-59 Severely decreased: 15-29 Renal Failure: <15 Glomerular Filtration Rate (GFR) is estimated based on the MDRD equation, which assumes a steady state for creatinine as recommended by the National Kidney Disease Education Program in conjunction with the National Institutes of Health and the National Kidney Foundation. Clinical conditions in which it may be necessary to measure GFR by using clearance methods include extremes of age and body size, severe malnutrition or obesity, diseases of skeletal muscle, paraplegia or quadriplegia, vegetarian diet, rapidly changing kidney function, and calculation of the dose of potentially toxic drugs that are excreted by the kidneys. 107 Triglyceride value >250 mg/dl, see Direct LDL result 108 Triglyceride value >250 mg/dl, see Direct LDL result 109 < .90 Neg (No Immunity) .91- 1.09 Equivocal >=1.10 Positive . 110 PSA VALUES ASSAYED AT [facility] USES AN EIA METHODOLOGY MANUFACTERED BY [employer] FOR USE ON THE NEXIA ANALYZER. VALUES OBTAINED WITH DIFFERENT ASSAY METHODS OR KITS CAN NOT BE USED INT ERCHANGEABLY. SERUM PSA MEASUREMENT IS NOT AN ABSOLUTE TEST FOR MALIGNANCY, THE PSA VALUE SHOULD BE USED IN CONJUNCTION WITH INFORMATION AVAILABLE FROM CLINICAL EVALUATION AND OTHER DIAGNOSTIC PROCEDURES. 111 SLIGHTLY LIPEMIC 112 Triglyceride value >250 mg/dl, see Direct LDL result 113 PSA VALUES ASSAYED AT [facility] USES AN EIA METHODOLOGY MANUFACTERED BY [employer] FOR USE ON THE NEXIA ANALYZER. VALUES OBTAINED WITH DIFFERENT ASSAY METHODS OR KITS CAN NOT BE USED INT ERCHANGEABLY. SERUM PSA MEASUREMENT IS NOT AN ABSOLUTE TEST FOR MALIGNANCY, THE PSA VALUE SHOULD BE USED IN CONJUNCTION WITH INFORMATION AVAILABLE FROM CLINICAL EVALUATION AND OTHER DIAGNOSTIC PROCEDURES. PSA VALUES ASSAYED AT [facility] USES AN EIA METHODOLOGY MANUFACTERED BY [employer] FOR USE ON THE NEXIA ANALYZER. VALUES OBTAINED WITH DIFFERENT ASSAY METHODS OR KITS CAN NOT BE USED INT ERCHANGEABLY. SERUM PSA MEASUREMENT IS NOT AN ABSOLUTE TEST FOR MALIGNANCY, THE PSA VALUE SHOULD BE USED IN CONJUNCTION WITH INFORMATION AVAILABLE FROM CLINICAL EVALUATION AND OTHER DIAGNOSTIC PROCEDURES. 114 FOLATE RESULT GREATER THAN 23.0 NG/ML. RESULT CONFIRMED. 115 Normal Range: Male: <4.98 Female: <4.45 116 Normal Range: Male: <4.98 Female: <4.45 Procedures Date Code Description Status 08/27/2018 88185 Electrocardiogram Complete Completed 01/25/2017 22642 Remove Skin Tags Up To 15 Completed 07/15/2016 99372 Electrocardiogram Complete Completed 03/24/2015 93922760 Colonoscopy Completed 01/13/2015 11202 Electrocardiogram Complete Completed 12/08/2014 25622 Electrocardiogram Complete Completed 12/08/2014 05806 Remove Skin Tags Up To 15 Completed 06/18/2013 12689 Electrocardiogram Complete Completed 04/04/2011 47074 Electrocardiogram Complete Completed 03/07/2008 87967 Paring Or Cutting Benign Lesion Completed 01/09/2006 62545 Electrocardiogram Complete Completed 01/14/2003 54666 Electrocardiogram Complete Completed 01/14/2003 96709 Remove Impacted Cerumen Requiring Instrumentation Completed 01/03/2002 93107 Electrocardiogram Complete Completed 06/05/2000 65956 Remove Impacted Cerumen Requiring Instrumentation Completed 03/30/2000 33444 Electrocardiogram Complete Completed Encounters Type Date Location Provider Dx Diagnosis Office Visit 06/15/2018 Suzie Vogel J01.00 Acute maxillary 4:00p MD Parul sinusitis, unspecified R11.2 Nausea with vomiting, unspecified R06.2 Wheezing Z68.41 Body mass index (BMI) 40.0-44.9, adult Office Visit 05/18/2018 2:45p Suzie Vogel E66.01 Morbid ( severe) MD Parul obesity due to excess calories E55.9 Vitamin D deficiency, unspecified G47.33 Obstructive sleep apnea (adult) (pediatric) F41.1 Generalized anxiety disorder E78.2 Mixed hyperlipidemia R73.01 Impaired fasting glucose E29.1 Testicular hypofunction I10 Essential (primary) hypertension M47.816 Spondylosis w/o myelopathy or radiculopathy, lumbar region Z68.41 Body mass index (BMI) 40.0-44.9, adult Office Visit 06/01/2017 9:20a Warren Galvan PA J15.9 Unspecified bacterial pneumonia F17.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, cigarettes, in remission Office Visit 05/16/2017 2:15p Suzie Vogel 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, LEFT hip E66.01 Morbid (severe) obesity due to excess calories M54.32 Sciatica, LEFT side Office Visit 01/25/2017 2:30p Suzie Vogel MD D23.4 Other benign neoplasm of skin of scalp and neck E78.2 Mixed hyperlipidemia E66.01 Morbid (severe) obesity due to excess calories R73.01 Impaired fasting glucose E29.1 Testicular hypofunction I10 Essential (primary) hypertension Z96.641 Presence of RIGHT artificial hip joint F41.1 Generalized anxiety disorder G47.33 Obstructive sleep apnea (adult) (pediatric) E55.9 Vitamin D deficiency, unspecified L91.8 Other hypertrophic disorders of the skin Office Visit 11/03/2016 4:15p Sunitha Street B02.9 Zoster without C, RN MS [employer] complications Office Visit 08/19/2016 2:00p Suzie Vogel E78.2 Mixed hyperlipidemia MD Parul E29.1 Testicular hypofunction E66.01 Morbid (severe) obesity due to excess calories E55.9 Vitamin D deficiency, unspecified M16.0 Bilateral primary osteoarthritis of hip R73.01 Impaired fasting glucose I10 Essential (primary) hypertension Office Visit 07/15/2016 8:30a Suzie Vogel Z00.01 Encounter for MD Parul general adult medical exam w abnormal findings I10 Essential (primary) hypertension E66.01 Morbid (severe) obesity due to excess calories E55.9 Vitamin D deficiency, unspecified R73.01 Impaired fasting glucose E78.2 Mixed hyperlipidemia Z12.5 Encounter for screening for malignant neoplasm of prostate E29.1 Testicular hypofunction F41.1 Generalized anxiety disorder M25.559 Pain in unspecified hip M25.569 Pain in unspecified knee G47.33 Obstructive sleep apnea (adult) (pediatric) G56.00 Carpal tunnel syndrome, unspecified upper limb Z12.11 Encounter for screening for malignant neoplasm of colon M54.5 Low back pain R10.13 Epigastric pain Office Visit 05/05/2015 1:00p Suzie Vogel MD M54.2 Cervicalgia J06.9 Acute upper respiratory infection, unspecified E66.01 Morbid (severe) obesity due to excess calories I10 Essential (primary) hypertension E78.0 Pure hypercholesterolemia R73.01 Impaired fasting glucose E29.1 Testicular hypofunction F41.1 Generalized anxiety disorder E55.9 Vitamin D deficiency, unspecified Office Visit 03/02/2015 2:00p Suzie Vogel E66.01 Morbid ( severe) MD Parul obesity due to excess calories I10 Essential (primary) hypertension R73.01 Impaired fasting glucose H69.93 Unspecified Eustachian tube disorder, bilateral Office Visit 01/30/2015 1:00p Suzie Vogel I10 Essential ( primary) MD Parul hypertension E78.0 Pure hypercholesterolemia R73.01 Impaired fasting glucose E66.01 Morbid (severe) obesity due to excess calories E29.1 Testicular hypofunction F41.1 Generalized anxiety disorder G56.01 Carpal tunnel syndrome, RIGHT upper limb G56.02 Carpal tunnel syndrome, LEFT upper limb Office Visit 01/13/2015 11:30a uSzie Vogel R73.01 Impaired fasting MD Parul glucose E78.0 Pure hypercholesterolemia E29.1 Testicular hypofunction R07.2 Precordial pain E66.01 Morbid (severe) obesity due to excess calories Office Visit 12/08/2014 11:15a Suzie Vogel 701.9 Hypertrophic & MD Parul Atrophic Conditions Of Skin Unspec V70.0 Exam (Adult) General Medical Routine AT Health Care Facility 401.1 Hypertension Benign 272.0 Hypercholesterolemia Pure 719.46 Pain Joint Lower Leg 268.9 Vitamin D Deficiency Unspec V76.44 Screening For Malig Bill Prostate 278.01 Obesity Morbid 719.49 Pain Joint Multiple Sites 300.02 Anxiety Disorder Generalized 257.2 Testicular Hypofunction Other V76.51 Special Screening For Malignant Neoplasms Colon 724.2 Lumbago 790.21 Impaired Fasting Glucose 701.9 Hypertrophic & Atrophic Conditions Of Skin Unspec Office Visit 10/24/2014 2:45p Suzie Vogel MD 401.1 Hypertension Benign 719.46 Pain Joint Lower Leg 272.0 Hypercholesterolemia Pure 268.9 Vitamin D Deficiency Unspec 724.2 Lumbago V76.44 Screening For Malig Bill Prostate 719.49 Pain Joint Multiple Sites 300.02 Anxiety Disorder Generalized 327.23 Apnea, Obstructive Sleep Apnea Adult & Pediatric Office Visit 06/02/2014 2:00p Suzie Vogel MD 401.1 Hypertension Benign 272.0 Hypercholesterolemia Pure 268.9 Vitamin D Deficiency Unspec 300.02 Anxiety Disorder Generalized 327.23 Apnea, Obstructive Sleep Apnea Adult & Pediatric 530.11 Esophagitis Reflux 724.2 Lumbago V76.51 Special Screening For Malignant Neoplasms Colon 281.1 Vitamin B12 Deficiency Anemia Other 275.2 Metabolic Disorder Magnesium 278.00 Obesity Unspec 790.21 Impaired Fasting Glucose 354.0 Carpal Tunnel Syndrome Office Visit 05/01/2014 10:20a Mandie Moon MD 478.9 Upper Resp Tract Disease Other & Unspec 530.81 Esophageal Reflux Office Visit 08/02/2013 2:45p Suzie Vogel MD 401.1 Hypertension Benign 780.79 Malaise And Fatigue Other 272.0 Hypercholesterolemia Pure 268.9 Vitamin D Deficiency Unspec 300.02 Anxiety Disorder Generalized 530.11 Esophagitis Reflux 719.46 Pain Joint Lower Leg 278.00 Obesity Unspec V76.51 Special Screening For Malignant Neoplasms Colon 477.0 Rhinitis Allergic Due To Pollen Office Visit 07/19/2013 11:40a [address]itha [address], 780.79 Malaise And Fatigue RN MS [employer] Other 079.89 Viral Infection Spec Other Office Visit 06/18/2013 3:00p Suzie Vogel MD V70.0 Exam ( Adult) General Medical Routine AT Health Care Facility 401.1 Hypertension Benign 272.0 Hypercholesterolemia Pure V76.51 Special Screening For Malignant Neoplasms Colon V76.44 Screening For Malig Bill Prostate 724.2 Lumbago V73.89 Screening Examination Viral Diseases Other Spec 300.02 Anxiety Disorder Generalized 799.81 Decreased Libido 268.9 Vitamin D Deficiency Unspec 530.11 Esophagitis Reflux 719.46 Pain Joint Lower Leg 327.23 Apnea, Obstructive Sleep Apnea Adult & Pediatric 278.00 Obesity Unspec 785.9 Cardiovascular Symptoms Other Office Visit 04/23/2012 5:00p Suzie Vogel MD 401.1 Hypertension Benign 272.0 Hypercholesterolemia Pure 300.02 Anxiety Disorder Generalized 724.2 Lumbago 327.23 Apnea, Obstructive Sleep Apnea Adult & Pediatric 799.81 Decreased Libido Office Visit 05/31/2011 10:00a Suzie Vogel MD V70.0 Exam ( Adult) General Medical Routine AT Health Care Facility 401.1 Hypertension Benign 272.0 Hypercholesterolemia Pure 300.02 Anxiety Disorder Generalized 724.2 Lumbago 461.0 Sinusitis Acute Maxillary 268.9 Vitamin D Deficiency Unspec V03.82 Streptococcus Pneumoniae Vaccination Spec Other V76.44 Screening For Malig Bill Prostate V76.51 Special Screening For Malignant Neoplasms Colon 327.23 Apnea, Obstructive Sleep Apnea Adult & Pediatric 727.03 Trigger Finger Acquired Office Visit 04/04/2011 11:30a Suzie Vogel MD 401.1 Hypertension Benign 272.0 Hypercholesterolemia Pure 724.2 Lumbago 327.23 Apnea, Obstructive Sleep Apnea Adult & Pediatric 799.81 Decreased Libido 300.02 Anxiety Disorder Generalized 783.1 Weight Gain Abnormal V76.44 Screening For Malig Bill Prostate Office Visit 11/17/2009 11:45a Suzie Vogel MD 401.1 Hypertension Benign 272.0 Hypercholesterolemia Pure V76.44 Screening For Malig Bill Prostate Office Visit 05/23/2008 4:00p Suzie Vogel MD 401.1 Hypertension Benign 272.0 Hypercholesterolemia Pure 724.2 Lumbago 327.23 Apnea, Obstructive Sleep Apnea Adult & Pediatric Office Visit 03/07/2008 3:30p Suzie Vogel MD 700 Corns & Callosities 401.1 Hypertension Benign 272.0 Hypercholesterolemia Pure 785.0 Tachycardia Unspec 799.81 Decreased Libido 327.23 Apnea, Obstructive Sleep Apnea Adult & Pediatric V04.81 Need For Prophylactic Vaccination & Inoculation/Influenza Office Visit 08/28/2007 11:45a Suzie Vogel MD 724.1 Pain Thoracic Spine 257.2 Testicular Hypofunction Other Office Visit 08/21/2007 11:30a Suzie Vogel MD 724.2 Lumbago 724.1 Pain Thoracic Spine 272.0 Hypercholesterolemia Pure 401.1 Hypertension Benign 780.93 Memory Loss V76.44 Screening For Malig Bill Prostate Office Visit 04/03/2007 3:15p Sunitha Street, RN MS [employer] 786.2 Cough 272.0 Hypercholesterolemia Pure 401.1 Hypertension Benign Office Visit 09/15/2006 8:00a Suzie Vogel MD 401.1 Hypertension Benign 272.0 Hypercholesterolemia Pure 724.2 Lumbago 300.02 Anxiety Disorder Generalized Office Visit 09/15/2006 8:00a Suzie Vogel MD 401.1 Hypertension Benign 272.0 Hypercholesterolemia Pure 724.2 Lumbago 300.02 Anxiety Disorder Generalized Office Visit 07/10/2006 10:45a Suzie Vogel MD 724.2 Lumbago 401.1 Hypertension Benign 300.02 Anxiety Disorder Generalized 272.0 Hypercholesterolemia Pure 790.21 Impaired Fasting Glucose 783.1 Weight Gain Abnormal 719.46 Pain Joint Lower Leg Office Visit 05/26/2006 9:45a Suzie Vogel MD 401.1 Hypertension Benign 724.2 Lumbago 786.59 Pain Chest Other 272.0 Hypercholesterolemia Pure 296.22 Depressive Disorder Major Single Episode Moderate Office Visit 01/09/2006 10:15a Suzie Vogel MD 401.1 Hypertension Benign 272.0 Hypercholesterolemia Pure 724.2 Lumbago 780.53 Sleep Disturbance, Hypersomnia W/ Sleep Apnea Unspec Office Visit 04/12/2005 10:00a Suzie Vogel MD 401.1 Hypertension Benign 272.0 Hypercholesterolemia Pure 724.2 Lumbago 296.22 Depressive Disorder Major Single Episode Moderate V04.81 Need For Prophylactic Vaccination & Inoculation/Influenza V06.5 Tetanus Diphtheria (DT) Office Visit 12/10/2004 2:30p Nadege Pope 272.0 Hypercholesterolemia Izabella Teran MD 401.1 Hypertension Benign 296.22 Depressive Disorder Major Single Episode Moderate 240.9 Goiter Unspec Office Visit 08/16/2004 4:45p Nadege Pope 272.0 Hypercholesterolemia Izabella Teran MD 401.1 Hypertension Benign 720.2 Sacroiliitis Not Elsewhere Classified Office Visit 06/28/2004 2:15p Nadege Pope 272.0 Hypercholesterolemia Izabella Teran MD 401.1 Hypertension Benign 724.2 Lumbago 780.79 Malaise And Fatigue Other 272.1 Hypertriglyceridemia Pure Office Visit 02/05/2004 10:00a Nadege Pope 272.0 Hypercholesterolemia Izabella Teran MD 789.00 Pain Abdominal Unspec Site 724.2 Lumbago 792.1 Stool Contents Abnormal 787.99 Digestive Symptoms Other Office Visit 01/30/2004 11:50a Suzie Vogel 272.2 Hyperlipidemia Kellee Teran MD 401.1 Hypertension Benign 784.0 Headache 533.90 Peptic Ulcer Unspec Acute Chronic W/O Hemo Or Perf W/O Obstr Office Visit 01/14/2003 11:20a Nadege Pope, 272.1 Hypertriglyceridemia Pure Suzie Teran MD 272.0 Hypercholesterolemia Pure 401.1 Hypertension Benign V76.44 Screening For Malig Bill Prostate V04.8 Need For Vaccination & Inoculation Other Viral Diseases Office Visit 01/18/2002 10:10a Suzie Vogel MD 780.79 Malaise And Fatigue Other 401.1 Hypertension Benign 780.57 Apnea, Unspecified Sleep Apnea Office Visit 01/03/2002 8:10a Nadege Pope 272.0 Hypercholesterolemia Pure Suzie Teran MD 401.1 Hypertension Benign 785.1 Palpitations 780.79 Malaise And Fatigue Other Office Visit 10/23/2001 9:50a Nadege Pope 272.0 Hypercholesterolemia Izabella Teran MD 401.1 Hypertension Benign 784.0 Headache 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 Office Visit 02/13/2001 9:50a Suzie Vogel MD Office Visit 06/05/2000 1:40p Suzie Vogel MD Office Visit 01/25/2000 10:40a Suzie Vogel 401.1 Hypertension Chase Teran MD Office Visit 01/04/2000 11:10a Suzie Vogel 780.79 Malaise And Fatigue MD Parul Other Plan of Treatment 08/27/2018 - Suzie Pope MDZ00.01 Encounter for general adult medical examination with ucimhnaX17.33 Obstructive sleep apnea (adult) (pediatric)E55.9 Vitamin D deficiency, drdnqgdoeyxT97.2 Mixed hyperlipidemiaFollow up:4 mosE29.1 Testicular hmtorsbdphebC75 Essential (primary) kmbxyxarrlluX89.5 Encounter for screening for malignant neoplasm of lqpyiwjzP86.11 Encounter for screening for malignant neoplasm of twehlY26.9 Type 2 diabetes mellitus without qoocsopysmlfkJ31.9 Obesity, atkxcerhtnzF39.816 Spondylosis without myelopathy or radiculopathy, lumbar regiF41.1 Generalized anxiety lmrnwmryX61.3 Ventricular premature depolarizationReferral:Janki Paulino,Z13.31 Encounter for screening for mtqeoexbgrT91.37 Body mass index (BMI) 37.0-37.9, adult
--- OUTSIDE RECORDS SUMMARY | 2018-09-17 13:32 | XMS REPORT | Continuity of Care Document ---
:1960 External Reference #:[id number] Author Name Kiah Strattona Care Team Providers Name Role Phone Suzie Pope MD Care Team Information Bods Developer Unavailable Suzie Pope MD Primary Care Physician Unavailable Payers Date Identification Numbers Payment Provider Subscriber Policy Number: [id number] BS Facets Harris Carter PayID: [id number] [address] [address] [place] [address] Expires: 2011 Policy Number: [id number] BS Of VINI Carter PayID: [id number] [address] [address] [place] [address] Problems Active Problems Provider Date Carpal tunnel syndrome Taina Culver M.D. 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 Family History Date Family Member(s) Observation Comments General [place] FATHER General Heart Disease BROTHER 1 BROTHER 2 Mother due to Unknown Causes () Siblings 8 Social History Type Date Description Comments Sex Unknown Marital Status 2 Times Lives With Family Occupation Currently Working Tobacco Use Start: Unknown End: Patient is a former smoker Unknown Recreational Drug Use Denies Drug Use Smoking Status Reviewed: 08/29/18 Patient is a former smoker Exercise Type/Frequency Exercises sporadically Allergies, Adverse Reactions, Alerts Active Allergies Reaction Severity Comments Date Topamax 12/11/2014 Medications Active Medications SIG Qnty Indications Ordering Provider Date D3 Dots take two 90tabs Paul Reece, 08/29/2018 2000Unit capsule/tablet DO [facility] Tablets Dispers daily by mouth Cpap Mask And cpap supplies - 1units Paul Reece, 08/28/2018 Supplies headgear, DO [facility] Device cushion, tubing, filters, for sleep apnea dx 780.57 Atorvastatin Calcium 1 by mouth every Paul Vashti Reece, 08/28/2018 day DO [facility] 20mg Tablets Lisinopril-Hydrochlor 1 by mouth every Unknown othiazide day 20-25mg Tablets Sertraline HCL 1 by mouth every Unknown 100mg day Tablets Ozempic 0.5 mg sc every Unknown 0.25Or 0.5 week mg/Dose Solution Pen-Inject Wrist use on lt wrist Unknown Splint/Cock-Up/Left/C every night anvas/Large Misc Wrist use bilat cts Unknown Splint/Cock-Up/Right/ Canvas/Large Misc History Medications Metaxalone 1-2 t po hs prn Paul Reece, 08/28/2018 - 400mg Tablets DO [facility] 08/28/2018 Prednisone 2 tablets day one and Unknown 08/27/2018 - 20mg Tablets two, 1 tablet day 08/28/2018 3,4,5, then one half tablet day 6,7,8 and 9 Cheratussin ac 5 - 10 milliliters Unknown 08/27/2018 - 100-10mg/5ML every 6 hours as 08/28/2018 Solution needed cough Naproxen Sodium as Directed Unknown - 550mg 08/28/2018 Tablets Doxycycline Hyclate 1 by mouth twice a Unknown - 100mg day 08/28/2018 Tablets Levitra 1 daily as needed 30 Unknown - 10mg Tablets min prior to sexual 08/28/2018 activity o Vitamin D3 Ultra 1 by mouth every day Unknown - Strength 08/28/2018 5000Unit Capsules Gabapentin tk 1 t po bid and 2 t Unknown - 300mg/6ML po hs d 08/28/2018 Solution Ventolin HFA 1 to 2 inhalations Unknown - 108(90Base) every 4 hours as 08/28/2018 mcg/Act Aerosol needed Aspirin 1 by mouth every day Unknown - 81mg Tablets 08/28/2018 Fluticasone Propionate 2 sprays each nostril Unknown - daily as needed 08/28/2018 50mcg/Act Suspension Contrave starter pack as Unknown - 8-90mg Tablets ER directed 08/28/2018 12HR Omeprazole 1 by mouth every day Unknown - 40mg Capsules 08/28/2018 Atorvastatin Calcium 1 by mouth every day Unknown - 10mg 08/28/2018 Tablets Vital Signs Date Vital Result Comment 08/29/2018 4:05pm Height 70 inches 5'10" Weight 262.00 lb with shoes Heart Rate 71 /min BP Systolic Sitting 143 mmHg Rue lg cuff BP Diastolic Sitting 70 mmHg Rue lg cuff BP Systolic Standing 140 mmHg Rue lg cuff BP Diastolic Standing 68 mmHg Rue lg cuff Respiratory Rate 16 /min BMI (Body Mass Index) 37.6 kg/m2 12/11/2014 1:04pm Height 70 inches 5'10" Weight 278.00 lb Heart Rate 68 /min BP Systolic Sitting 122 mmHg BP Diastolic Sitting 70 mmHg Respiratory Rate 16 /min BMI (Body Mass Index) 39.9 kg/m2 Procedures Date Code Description Status 08/29/2018 51946 EKG Tracing & Interpretation Completed 12/11/2014 66517 Nerve Conduction 07-08 Studies Completed 12/11/2014 99953 Needle Electromyography Each Extremity W/Related Completed Paraspinal Areas 03/18/2003 74866 Treadmill Interp/Report Only Completed 03/18/2003 92925 Stress Test Supervsn W/Out I/R Completed Plan of Treatment Future Appointment(s):09/13/2018 4:20 pm - Paul Reece DO [facility] at [facility]09/05/2018 9:00 am - Nurse Visit IC at [facility]09/04/2018 9:30 am - Nurse Visit IC at [facility]08/29/2018 - Paul Reece DO FACCI49.3 Ventricular premature depolarizationNew Orders: Holter Monitor, Scheduled: 09/04/18Echocardiogram, Ordered: 08/29/18Follow up: Have patient sign record release at [facility] for cardiac catheterization report Have patient sign record release for stress test results from Dr. Guevara in [place], [place] Havepatient sign record release to [facility] Please schedule echo at [facility] (may need definity) f/uafter studies
--- OUTSIDE RECORDS SUMMARY | 2018-09-17 13:32 | XMS REPORT | Continuity of Care Document ---
:1960 External Reference #:[id number] Author Name Shira Garcia Care Team Providers Name Role Phone Suzie Pope MD Care Team Information Pmp Certified Project Manager Unavailable Suzie Pope MD Primary Care Physician Unavailable Payers Date Identification Numbers Payment Provider Subscriber Policy Number: [id number] BS Chuyita Carter PayID: [id number] [address] [address] [place] [address] Expires: 2011 Policy Number: [id number] BS Of VINI Carter PayID: [id number] [address] [address] [place] [address] Advance Directives Description No Information Available Problems Active Problems Provider Date Carpal tunnel syndrome Taina Culver M.D. 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 Family History Description No Information Available Social History Type Date Description Comments Sex Unknown Tobacco Use Start: Unknown Patient has never smoked Allergies, Adverse Reactions, Alerts Active Allergies Reaction Severity Comments Date Topamax 12/11/2014 Medications Active Medications SIG Qnty Indications Ordering Date Provider Cpap Mask And cpap supplies - 1units Paul Reece, 08/28/2018 Supplies headgear, cushion, DO [facility] Device tubing, filters, for sleep apnea dx 780.57 Atorvastatin Calcium 1 by mouth every Paul Reece, 08/28/2018 day DO [facility] 20mg Tablets Metaxalone 1-2 t po hs prn Paul Reece, 08/28/2018 400mg DO [facility] Tablets Wrist use bilat cts Unknown Splint/Cock-Up/Right /Canvas/Large Misc Wrist use on lt wrist Unknown Splint/Cock-Up/Left/ every night Canvas/Large Misc Levitra 1 daily as needed Unknown 10mg Tablets 30 min prior to sexual activity o Ozempic 0.5 mg sc every Unknown 0.25Or 0.5 week mg/Dose Solution Pen-Inject Vitamin D3 Ultra 1 by mouth every Unknown Strength day 5000Unit Capsules Gabapentin tk 1 t po bid and 2 Unknown 300mg/6ML t po hs d Solution Ventolin HFA 1 to 2 inhalations Unknown every 4 hours as 108(90Base) mcg/Act needed Aerosol Aspirin 1 by mouth every Unknown 81mg Tablets day Fluticasone 2 sprays each Unknown Propionate nostril daily as 50mcg/Act needed Suspension Sertraline HCL 1 by mouth every Unknown 100mg day Tablets Lisinopril-Hydrochlo 1 by mouth every Unknown rothiazide day 20-25mg Tablets History Medications Atorvastatin Calcium 1 by mouth every day Unknown - 2018 10mg Tablets Omeprazole 1 by mouth every day Unknown - 08/28/[address] Segura starter pack as Unknown - 08/28/2018 8-90mg Tablets ER 12HR directed Immunizations Description No Information Available Vital Signs Date Vital Result Comment 12/11/2014 1:04pm Height 70 inches 5'10" Weight 278.00 lb Heart Rate 68 /min BP Systolic Sitting 122 mmHg BP Diastolic Sitting 70 mmHg Respiratory Rate 16 /min BMI (Body Mass Index) 39.9 kg/m2 Results Description No Information Available Procedures Date Code Description Status 12/11/2014 51752 Nerve Conduction 07-08 Studies Completed 12/11/2014 30480 Needle Electromyography Each Extremity W/Related Completed Paraspinal Areas 03/18/2003 66236 Treadmill Interp/Report Only Completed 03/18/2003 17257 Stress Test Supervsn W/Out I/R Completed Encounters Description No Information Available Plan of Treatment Future Appointment(s):08/29/2018 4:20 pm - Paul Reece DO [facility] at [facility]12/11/2014 - Taina Culver M.D.354.0 Carpal Tunnel Pmmrbstg044.2 Injury Nerve UlnarRecommendations:Avoid leaning on your right sjyps372.2 Lesion Ulnar Nerve
--- OUTSIDE RECORDS SUMMARY | 2018-09-17 13:33 | XMS REPORT | Continuity of Care Document ---
:1960 External Reference #:[id number] Author Name Suzie Pope MD Address [address] [place] [address] Care Team Providers Name Role Phone Suzie Pope MD Care Team Information Display Manager Unavailable Payers Date Identification Numbers Payment Provider Subscriber Effective: 2011 Policy Number: [id number] [employer] Group Name: [id number] [address] [address] PayID: [id number] [place] [address] Advance Directives Description No Information Available Problems [...] History Date Family Member(s) Observation Comments Father [place] First Brother Heart Disease Second Brother Heart [...] Fluticasone 2 sprays in each 48gm J01.00 [facility], 06/15/2018 Propionate nostril daily Suzie Teran MD 50mcg/Act Suspension Gabapentin take 1 po bid and 2 120caps M47.816 [facility], 06/11/2018 300mg capsules by mouth Suzie Teran MD Capsules every night at bedtime Cpap autotitrating 5-15 G47.33 [facility], 06/08/2018 Device cm Suzie Teran MD Vitamin D3 1 by mouth every day E55.9 [facility], 05/21/2018 5000Unit Suzie Teran MD Tablets Atorvastatin 1 by mouth every day 90tabs E78.2 [facility], 05/21/2018 Calcium Suzie Teran MD 20mg Tablets Ozempic inject 0.5mg every 4.5ml E11.9 [facility], 05/21/2018 0.25Or 0.5 week as directed Suzie Teran MD mg/Dose Solution Pen-Inject Metaxalone 1- 2 every night at 30tabs M47.816 [facility], 05/18/2018 400mg bedtime as needed Suzie Teran MD Tablets Levitra 1 po qd prn 6tabs E29.1 [facility], 08/19/2016 10mg Suzie Teran MD Tablets Cock Up Splint wear qhs dx: bilat 2units G56.00 [facility], 06/02/2014 CTS Suzie Teran MD Lisinopril-Hydrochl take 1 tablet by 90tabs I10 [facility], 12/23/2013 orothiazide mouth once daily Suzie Teran MD 20-25mg Tablets Sertraline HCL take 1 and 1/2 135tabs F41.1 [facility], 05/31/2011 tablet by mouth once Suzie Teran MD 100mg Tablets daily History Medications Letter Of Support For this patient to [facility], 2018 - undergo bariatric Suzie Teran MD 08/27/2018 surgery for wt loss. Over the past decades we have tried multiple lifestyle and medication options Cheratussin ac 5-10 milliliters 120ml J01.00 [facility], 06/15/2018 - 100-10mg/5ML four times a day as Suzie Teran MD 08/27/2018 Solution needed cough Doxycycline Hyclate 1 by mouth twice a 20tabs J01.00 [facility], 06/15/2018 - 100mg day x 10 d Suzie Teran MD 08/27/2018 Tablets Prednisone 2 every in the 10tabs R06.2 [facility], 06/15/2018 - 20mg Tablets morning x 5 d Suzie Teran MD 08/27/2018 Cpap autotitrating 5-20 G47.33 [facility], 06/08/2018 - Device cm Suzie Teran MD 06/08/2018 Methylprednisolone as dir 21units M47.81 [...] work M16.12 [facility], 05/16/2017 - today thru 05/19 Suzie Teran MD 05/18/2018 Cyclobenzaprine HCL take [...] Famciclovir one tab three times 21tabs B02.9 [place], 11/03/2016 - 500mg Tablets a day x 7 days Sunitha Aguilar RN 01/25/2017 [employer] Lidocaine apply daily for 12 30units B02.9 [place], 11/03/2016 - 5% Patches hours and remove Sunitha Aguilar RN 01/25/2017 for 12 hours( [employer] generic ok) Tramadol HCL take one tablet by 30tabs [facility], 09/20/2016 - 50mg Tablets mouth three times a Suzie Teran MD 01/25/2017 day as needed for pain max of 3 tablets per day Vitamin D3 2 by mouth every E55.9 [facility], 08/19/2016 - 1000Unit Tablets day Suzie Teran MD 05/21/2018 Librax Take 1 Capsule 4 360caps Rubinionain, 08/11/2016 - 5-2.5mg Capsules Times Daily MD Michael 08/19/2016 Vitamin D 1 by mouth qwk x 8 8caps [facility], 07/19/2016 - (Ergocalciferol) ekaterina Teran MD 08/19/2016 [id number] Capsules Fortamet 2 by mouth twice a 120tabs Z00.01 [facility], 07/15/2016 - 500mg Tablets ER day Suzie Teran MD 01/25/2017 24HR Work Note please excuse from [facility], 07/13/2015 - work 07/07-07/14 Suzie Teran MD 07/15/2016 Vitamin D 1 by mouth qwk x 8 8caps [facility], 05/06/2015 - (Ergocalciferol) ekaterina Teran MD 07/15/2016 [id number] Capsules BD Pen for saxenda pen 30units [...] - (Ergocalciferol) wks Suzie Teran MD 10/24/2014 [id number] Capsules Contrave as dir starter QS 278.00 [facility] 06/02/2014 - 8-90mg Tablets ER pack- Suzie Teran MD 10/24/2014 12HR Robitussin ac 15cc every night at 150cc 478.9 Mandie Yousif 05/01/2014 - bedtime and thaddeus Phipps MD 06/02/2014 day time as needed for cough [...] Calcium 1 by mouth every 90tabs E78.2 [facility] 08/02/2013 - 10mg day Suzie Teran MD [...] x 8 wks 8caps [facility], 04/18/2011 - [id number] Capsules Suzie Teran MD 05/31/2011 Vitamin D 1 po qd 268.9 [facility], 04/18/2011 - 2000Unit Capsules Suzie Teran MD 06/02/2014 Alprazolam ER one half-two po tid 20tabs [facility], 04/04/2011 - 0.25mg Tablets prn anxiety Suzie Teran MD 05/31/2011 Sertraline HCL 1 And 1/2 qd 45tabs 300.02 [facility] 04/04/2011 - 50mg Tablets Suzie Teran MD 05/31/2011 Cialis Take 1 To 2 Tablets 6tabs 401.1 [place], 06/14/2010 - 10mg Tablets Daily as Directed Sunitha Aguilar RN 05/31/2011 [employer] Work Note pl excuse from work [facility], 05/07/2010 - 04/19 Suzie Teran MD 04/04/2011 Crestor take 1 tablet by 30tabs 272.0 [facility] 11/19/2009 - 20mg Tablets mouth once daily [...] Lisinopril take 1 tablet by 30tabs 401.1 [place], 12/29/2008 - 10mg Tablets mouth once daily Sunitha Aguilar RN 06/02/2014 [employer] Verapamil HCL ER take 1 capsule by 30caps [facility], 11/10/2008 - 300mg Caps mouth once daily Suzie Teran MD 04/04/2011 ER 24HR Tramadol Take 1 tablet every 120tabs 724.2 [facility], 11/09/2008 - Hydrochloride/Acetaminop four hours as Suzie Teran MD 11/17/2009 hen directed Tabs Blood Draw cmp, lipid panel, 272.0 [facility], 05/23/2008 - 25 oh vit D Suzie Teran MD 06/12/2008 dx: 272.0, vit D def Work Note pl excuse from work 724.2 [facility], 05/23/2008 - 05/26 and 05/27 Suzie Teran [...] MD 11/17/2009 Celebrex take 1 capsule by 90caps [facility], 10/26/2007 - 200mg Caps mouth once daily [...] Sunitha Aguilar RN 04/23/2007 Liquid ER [employer] No Work 04/04/07 786.2 [place], 04/03/2007 - D/T Illness Sunitha Aguilar RN 08/17/2007 [employer] Amoxicillin 1 PO bid 20tabs [facility], 03/27/2007 [...] 200mg Capsules Sunitha Aguilar RN 08/28/2007 [employer] Water Therapy Eval And Treat 724.2 [facility], [...] [place] Omeprazole 1 po qd 30units 724.2 [facility], 01/09/2006 - 20mg Suzie Teran MD 11/17/2009 Nabumetone 1-2 po qd 60tabs 724.2 [place], 12/06/2005 - 750mg Tablets Sunitha Aguilar RN 05/26/2006 [employer] Physical Therapy eval and treat [facility], 05/20/2005 - lbpand r hip pain Suzie Teran MD 09/15/2006 [facility] [employer] Ultracet 1 PO Q4H 90tabs 724.2 [place], 04/12/2005 - 325mg;37.5 mg Sunitha Aguilar RN 11/09/2008 Tablets [employer] Blood Draw fasting: cbc, cmp, 272.0 [facility], 04/12/2005 - lipid panel Suzie Teran MD 04/13/2005 dx: HTN, hiGHh chol [facility]est[facility]d [facility] - 10mg Tablets Suzie Teran MD 12/29/2008 Amoxicillin 1 po tid 30caps [facility], 08/16/2004 - 250mg Capsules Suzie Teran MD 12/10/2004 Vytorin 1 po qhs [facility]tabs [facility] 06/[facility] - 10/40 Tablets Suzie Teran MD 11/19/2009 Verelan PM 1 po qd 90caps [facility], 06/28/2004 - 300mg Capsules Suzie Teran MD 11/10/2008 Levitra 1-2 po qd prn 12tabs [facility], 06/28/2004 - 10mg Tablets Suzie Teran MD 11/17/2009 Wellbutrin XL 1 po qam 30tabs [facility], 06/14/2004 - 300mg Tablets Suzie Teran MD 01/09/2006 Wellbutrin XL 1 po qd 30tabs [facility], 06/14/2004 - 150mg Tablets MD Oswald 06/28/2004 Niaspan Extended Release 1 po qd 90tabs [facility], 06/14/2004 - MD Oswald 06/28/2004 1,000mg Tablets Zocor 1 po qd 30tabs [facility], 06/14/2004 - 40mg Tablets MD Oswald 06/28/2004 Immunizations CPT Code Status Date Vaccine Lot # [id number] Given 05/18/2018 Influenza Vac, Quadrivalent, Split, 0.5mL Dosage, [place] Use 24169 Given 01/11/2017 Influenza Vac, Quadrivalent, Split, 0.5mL Dosage, Im Use 70149 Given 07/15/2016 Tdap (Adacel) Ages 7 And Above Only [id number] 64506 Given 01/13/2015 Influenza Vac, Quadrivalent, Split, 0.5mL Dosage, [id number] Im Use 70496 Given 05/31/2011 Pneumococcal 23 Immunization Adult [place] [id number] Immunosuppressed Patient 37742 Given 03/07/2008 Afluria Or Fluvirin Flu Vac Intramuscular [id number] 61669 Given 04/12/2005 Tetanus And Diptheria Toxoids For Adult [id number] Use-preservative free 81375 Given 04/12/2005 Afluria Or Fluvirin Flu Vac Intramuscular [id number] 22427 Given 01/14/2003 Afluria Or Fluvirin Flu Vac Intramuscular 79028 Refused 07/15/2016 Influenza Vac, Quadrivalent, Split, 0.5mL [...] Date Facility Test Result H/L Range Note Laboratory test finding 08/27/2018 [facility] Vit D 25Oh <pending> Hemoglobin A1c <pending> PSA <pending> TSH <pending> Magnesium <pending> Laboratory test 06/15/2018 Done In Doctors Office 1 Rapid Flu NEG FOR A finding Test (In House) AND B CBC with Auto 05/18/2018 [facility] WBC 7.3 K/uL 4.1-11.0 1 Diff-fcmg RBC 5.09 M/uL 4.60-6.10 Hemoglobin 15.1 [...] 0.1 K/uL 0.0-0.3 Comprehensive Met Panel-[facility] 05/18/2018 [facility] Sodium 138 mmol/L 135- 146 2 Potassium 4.7 mmol/L 3.5-5.2 Chloride# 100 mmol/L 97-110 3 Carbon Dioxide 32 mmol/L 24-34 Glucose 102 mg/dL 70-105 BUN 18 mg/dL 6-26 Creatinine 1.1 mg/dL 0.5-1.4 Calcium 9.4 mg/dL 8.5-10.2 Total Protein 6.4 g/dL 6.0-8.0 Albumin 4.4 g/dL 3.6-4.9 Globulin 2.0 g/dL 2.0-3.5 A/G Ratio 2.2 Ratio 1.0-2.2 Total Bilirubin 0.3 mg/dL 0.1-1.3 Alkaline Phosphatase 88 U/L 24-140 Alt 29 U/L 3-42 Ast 20 U/L 8-42 Anion Gap 6 mmol/L 5-15 4 Anabela Egfr >60 >60 5 Non Anabela Egfr >60 >60 6 Lipid 05/18/2018 [facility] Cholesterol 241 mg/dL High 50-199 Triglycerides 326 mg/dL High 30-200 HDL 34 mg/dL -71 7 Chol/ HDL Ratio 7.0 ratio High 4.0-6.7 VLDL 65 mg/dL High 2-29 LDL (Calc) 142 mg/dL High 20-99 8 Hemoglobin A1c 05/18/2018 [facility] Hemoglobin A1c 6.7 % High 4.1-5.9 Estimated Average Glucose Calc 146 mg/dL High 71-140 Laboratory test finding 05/18/2018 [facility] Vitamin D 25 Hydroxy 18 ng/mL Low 30-100 9 TSH 1.57 uIU/mL 0.35-4.94 Laboratory test finding 01/25/2017 [facility] SEE NOTE 10 Laboratory test finding 01/25/2017 [facility] Vit D25oh 28 ng/mL Low 31-100 TSH 1.21 uIU/mL 0.35-4.94 Lipid 01/25/2017 [facility] Cholesterol 180 mg/dL 50-199 Triglycerides 258 mg/dL High 30-200 HDL 33 mg/dL 11 Chol/ HDL Ratio 5.4 ratio 4.0-6.7 VLDL 52 mg/dL High 2-29 LDL (Calc) 95 mg/dL 20-99 12 Hemoglobin A1c 01/25/2017 [facility] Hemoglobin A1c 6.4 % High 4.1-5.9 Estimated Average Glucose Calc 137 71-140 Comprehensive Met Panel-[facility] 01/25/2017 [facility] Sodium 139 mmol/L 135- 146 13 Potassium 4.8 mmol/L 3.5-5.2 Chloride# 103 mmol/L 97-110 14 Carbon Dioxide 25 mmol/L 24-34 Glucose 78 mg/dL 70-105 Creatinine 1.0 mg/dL 0.5-1.4 Calcium 9.3 mg/dL 8.5-10.2 Total Protein 6.6 g/dL 6.0-8.0 Albumin 4.0 g/dL 3.6-4.9 Globulin 2.6 g/dL 2.0-3.5 A/G Ratio 1.5 Ratio 1.0-2.2 Total Bilirubin 0.4 mg/dL 0.1-1.3 Alkaline Phosphatase 83 U/L 24-140 Alt 26 U/L 3-42 Ast 19 U/L 8- Anabela Egfr >60 >60 15 Non Anabela Egfr >60 >60 16 Anion Gap 11 mmol/L 7-16 17 BUN 14 mg/dL 6-26 Comprehensive Metabolic (CMP) 08/19/2016 [facility] Sodium 137 mmol/L 135- 146 18 Potassium 4.2 mmol/L 3.5-5.2 Chloride# 100 mmol/L 97-110 19 Carbon Dioxide 29 mmol/L 24-34 Glucose 90 mg/dL 70-105 BUN 19 mg/dL 6- Creatinine 1.1 mg/dL 0.5-1.4 Calcium 9.5 mg/dL 8.5-10.2 Total Protein 7.1 g/dL 6.0-8.0 Albumin 4.5 g/dL 3.6-4.9 Globulin 2.6 g/dL 2.0-3.5 A/G Ratio 1.7 Ratio 1.0-2.2 Total Bilirubin 0.4 mg/dL 0.1-1.3 Alkaline Phosphatase 83 U/L 24-140 Alt 24 U/L 3-42 Ast 20 U/L 8- Anabela Egfr >60 >60 20 Non Anabela Egfr >60 >60 21 Anion Gap 12 mmol/L 7-16 22 Lipid 08/19/2016 [facility] Cholesterol 184 mg/dL 50-199 Triglycerides 195 mg/dL 30-200 HDL 39 mg/dL 29-71 23 Chol/ HDL Ratio 4.8 ratio 4.0-6.7 VLDL 39 mg/dL High 2-29 LDL (Calc) 107 mg/dL High 20-99 24 Laboratory test finding 08/19/2016 [facility] Vit D,25 [...] 0.1 K/uL 0.0-0.3 Comprehensive Metabolic (CMP) 07/15/2016 [facility] Sodium 138 mmol/L 135- 146 25 Potassium 4.5 mmol/L 3.5-5.2 Chloride# 102 mmol/L 97-110 26 Carbon Dioxide 28 mmol/L 24-34 Glucose 114 mg/dL High 70-105 BUN 18 mg/dL 6-26 Creatinine 1.0 mg/dL 0.5-1.4 Calcium 9.2 mg/dL 8.5-10.2 Total Protein 6.6 g/dL 6.0-8.0 Albumin 4.3 g/dL 3.6-4.9 Globulin 2.3 g/dL 2.0-3.5 A/G Ratio 1.9 Ratio 1.0-2.2 Total Bilirubin 0.5 mg/dL 0.1-1.3 Alkaline Phosphatase 73 U/L 24-140 Alt 28 U/L 3-42 Ast 20 U/L 8-42 Anabela Egfr >60 >60 27 Non Anabela Egfr >60 >60 28 Anion Gap 13 mmol/L 7-16 29 Laboratory test finding 07/15/2016 [facility] Hemoglobin A1c 6.3 % High 4.1- 5.9 Lipid 07/15/2016 [facility] Cholesterol 256 mg/dL High 50-199 Triglycerides 231 mg/dL High 30-200 HDL 35 mg/dL 29- 30 Chol/ HDL Ratio 7.3 ratio High 4.0-6.7 VLDL 46 mg/dL High 2-29 LDL (Calc) 175 mg/dL High 20-99 31 Laboratory test finding 07/15/2016 [facility] Vit D,25 Hydroxy 20 ng/mL Low 31-100 PSA 0.970 ng/mL 0.000-4.000 32 TSH 1.41 uIU/mL 0.35-4.94 Comprehensive Metabolic (CMP) [...] 10 mmol/L 6-14 Anabela Egfr >60 >60 33 Non Anabela Egfr >60 >60 34 Lipid 05/05/2015 [facility] Cholesterol 145 mg/dL 50-199 Triglycerides 456 Specimen Mod <SEE NOTE> mg/dL High 30-200 35 HDL 29 mg/dL 29- 36 Chol/ HDL Ratio 5.0 ratio 4.0-6.7 Laboratory test finding 05/05/2015 [facility] Hemoglobin A1c 5.9 % 4.1-5.9 Vit D,25 Hydroxy 23 ng/mL Low 31-100 Laboratory test finding 05/05/2015 [facility] Direct LDL 76 mg/dL 20-99 37 Comprehensive Metabolic (CMP) 01/30/2015 [facility] Sodium 138 mmol/L 134- 142 Potassium 4.8 [...] 10 mmol/L 6-14 Anabela Egfr >60 >60 38 Non Anabela Egfr >60 >60 39 Laboratory test finding 12/08/2014 [facility] Lyme Igm/Igg AB NEGATIVE (Neg ) 40 CCP Antibody Igg 3 41 Rubella Igg AB POSITIVE AI 42 Measles Igg AB POSITIVE AI 43 Mumps Igg (Immune) POSITIVE AI 44 Laboratory test finding 12/08/2014 [facility] CPK 185 [...] 0.1 K/uL 0.0-0.3 Laboratory test finding 12/08/2014 [place] Hemoglobin A1c 6.4 % High 4.1- 5.9 Vit D,25 Hydroxy 37 ng/mL 31-100 PSA 0.990 ng/mL 0.000-4.000 45 Lipid 12/08/2014 [place] Cholesterol 170 mg/dL 50-199 Triglycerides 187 mg/dL 30-200 HDL 35 mg/dL 29-71 46 Chol/ HDL Ratio 4.9 ratio 4.0-6.7 VLDL 37 mg/dL High 2-29 LDL (Calc) 98 mg/dL 20-99 47 Comprehensive Metabolic (CMP) 12/08/2014 [place] Sodium 136 mmol/L 134- 142 Potassium 4.2 [...] 14 mmol/L 6-14 Anabela Egfr >60 >60 48 Non Anabela Egfr >60 >60 49 Laboratory test finding 12/08/2014 [facility] SEE NOTE 50 CBC With Auto Diff 06/02/2014 [facility] WBC 7.9 K/uL 4.1-11.0 RBC 4.97 M/uL [...] 0.1 K/uL 0.0-0.3 Comprehensive Metabolic (CMP) 06/02/2014 [facility] Sodium 134 mmol/L 134- 142 Potassium 4.1 [...] 11 mmol/L 6-14 Anabela Egfr >60 >60 51 Non Anabela Egfr >60 >60 52 Lipid 06/02/2014 [facility] Cholesterol 231 mg/dL High 50-199 Triglycerides 707 Specimen Mod <SEE NOTE> mg/dL High 30-200 53 HDL 30 mg/dL 29-71 54 Chol/ HDL Ratio 7.7 ratio High 4.0-6.7 Laboratory test finding 06/02/2014 [facility] Hemoglobin A1c 6.2 % High 4.1- 5.9 TSH 1.98 uIU/mL 0.34-5.60 Free T4 0.80 ng/dL 0.50-1.60 Vit D,25 Hydroxy 23 ng/mL Low 31-100 55 Hepatitis C Virus Antibody Non reactive Non reactive Vitamin B12 359 pg/mL 180-914 Magnesium 1.9 mg/dL 1.5-2.7 Direct LDL 143 mg/dL High 20-99 56 Ebv Evaluation -RL 07/19/2013 [facility] Ebv Vca Igg @ POSITIVE (Neg) 57, 58 Ebv Vca Igm @ NEGATIVE (Neg) Ebv Early Ag Igg @ NEGATIVE (Neg) Ebv Nuclear Ag Igg @ POSITIVE (Neg) 59 Basic (BMP) 07/19/2013 [facility] Sodium 135 mmol/L 134-142 Potassium 4.2 mmol/L 3.5-5.2 Chloride 106 mmol/L 97-109 Carbon Dioxide 23 mmol/L Low 24-34 60 Glucose 85 mg/dL 70-105 BUN 18 mg/dL 6-26 Creatinine 1.1 mg/dL 0.5-1.4 Calcium 9.2 mg/dL 8.5-10.2 Anion Gap 10 mmol/L 6-14 Non Anabela Egfr >60 >60 61 Anabela Egfr >60 >60 62 Iron Panel 07/19/2013 [facility] Iron, Total 90 g/dL 65-175 Transferrin 222.7 mg/dL 203.0-362.0 Tibc (calc) 312 g/dL 261-478 % Iron Saturation 28.9 % 13.0-45.0 Laboratory test finding 07/19/2013 [facility] Vitamin B12 353 pg/mL 180- 914 Lipid 05/31/2011 [facility] Cholesterol 182 mg/dL 50-199 63 Triglycerides 144 mg/dL 10-150 HDL 38 mg/dL 23-92 64 Chol/ HDL Ratio 4.8 ratio 4.0-6.7 VLDL 29 mg/dL 2-29 LDL (Calc) 115 mg/dL 20-129 65 Comprehensive Metabolic (CMP) 05/31/2011 [facility] Sodium 137 mmol/L 135- 144 Potassium 4.3 [...] mmol/L 8-16 Non Anabela Egfr >60 >60 66 Anabela Egfr >60 >60 67 Laboratory test finding 05/31/2011 [facility] Vit D,25 [...] 0.0 K/uL 0.0-0.3 Laboratory test finding 04/04/2011 [facility] TSH 1.31 uIU/mL 0.34-5.60 Comprehensive Metabolic (CMP) 04/04/2011 [facility] Sodium 137 mmol/L 135- 144 Potassium 4.0 [...] mmol/L 8-16 Non Anabela Egfr >60 >60 68 Anabela Egfr >60 >60 69 Lipid 04/04/2011 [facility] Cholesterol 243 mg/dL High 50-199 Triglycerides 225 mg/dL High 10-150 HDL 33 mg/dL 29-71 70 Chol/ HDL Ratio 7.4 ratio High 4.0-6.7 VLDL 45 mg/dL High 2-29 LDL (Calc) 165 mg/dL High 20-129 71 Laboratory test finding 04/04/2011 [facility] PSA 1.79 ng/mL 0.00-4.00 72 Vit D,25 Hydroxy 25 ng/mL Low 31-100 Hemoglobin A1c 6.0 % High 4.1-5.9 TST FR+T Adult Male -RL 04/04/2011 [facility] Testosterone 287 ng/dL Low 73 Sex Binding Glob 24 nmol/L 74 Testosterone Free 60 pg/mL 75 Testosterone % Free 2.1 % 76 CBC With Auto Diff 11/17/2009 [facility] (Do not Use) WBC 5.6 K/ul 4.0- 10.9 [facility] [place] [address] [phone] RBC 4.86 M/ul 4.70-6.10 Hemoglobin 14.9 GM/dl [...] (Do not Use) Sodium 138 mmol/L 135-144 [facility] [place] [address] [phone] Potassium 4.9 mmol/L 3.6-5.2 Chloride 101 mmol/L [...] 8-16 GFR Calculation > 60 mL/min 60-175 77 GFR For > 60 mL/min 60-175 78 Lipid Panel 11/17/2009 [facility] (Do not Use) Cholesterol 225 mg/dL High 50-199 [facility] [place] [address] [phone] Triglycerides 107 mg/dL 10-150 HDL 34 mg/dL 29-71 79 Chol/HDL Ratio 6.6 Ratio 4.0-6.7 80 VLDL 21 mg/dL 2-29 LDL (Calc) 170 mg/dL High 20-129 81 Testosterone,FR&Tot Adult 11/17/2009 [facility] (Do not Use) Testosterone 326 ng/dL 82 Male-RL [facility] [place] [address] [phone] Sex Binding Globulin - LA 24 nmol/L 83 Testosterone-Free 69 pg/mL 84 Testosteron % Free-LA 2.1 % 85 Laboratory test 11/17/2009 [facility] (Do not Use) TSH 1.64 uIU/ml 0.34 -5.60 finding [facility] [place] [address] [phone] Vitamin D, 25 Hydroxy 39 ng/mL 31-100 PSA 0.86 ng/ml 0.00-4.00 86 CBC With Auto Diff 08/21/2007 [facility] (Do not Use) WBC 5.5 K/ul 4.0- 10.9 87 [facility] [place] [address] [phone] RBC 4.90 M/ul 4.70-6.10 Hemoglobin 14.9 GM/dl [...] (Do not Use) Sodium 137 mmol/L 135-144 [facility] [place] [address] [phone] Potassium 4.4 mmol/L 3.6-5.2 Chloride 104 mmol/L [...] mmol/L 8-16 GFR Calculation > 60 mL/min 88 GFR For > 60 mL/min 89 Lipid Panel 08/21/2007 [facility] (Do not Use) Cholesterol 239 mg/dL High 50-199 [facility] [place] [address] [phone] Triglycerides 161 mg/dL High 10-150 HDL 32 mg/dL 29-71 Chol/HDL Ratio 7.5 Ratio VLDL 32 mg/dL LDL (Calc) 175 mg/dL High 20-129 Laboratory test finding 08/21/2007 [facility] (Do not Use) Esr 29 MM/HR High 0-15 [facility] [place] [address] [phone] Folate 17.6 ng/ml 6.6-20.0 90 TSH 1.40 uIU/ml 0.34-5.60 Vitamin B12 340 pg/mL 180-914 Vitamin D, 25 Hydroxy 29 ng/mL 19-58 PSA 0.71 ng/ml 0.00-4.00 91 Testosterone,FR&Tot 08/21/2007 [facility] (Do not Use) Testosterone 272 ng /dL Low 92 Adult Male-RL [facility] [place] [address] [phone] Sex Binding Globulin - LA 26 nmol/L 93 Testosterone-Free 55 pg/mL 94 Testosteron % Free-LA 2.0 % 95 Lipid [place] Panel 09/15/2006 [facility] (Do not Use) Ast 19 U/L 12-40 [facility] [place] [address] [phone] Alt 32 U/L 4-45 Cholesterol 133 mg/dL 50-199 Triglycerides 52 mg/dL 10-150 HDL 27 mg/dL Low 29-71 LDL (Calc) 96 mg/dL 20-129 Chol/HDL Ratio 4.9 Ratio VLDL 10 mg/dL Laboratory test 07/10/2006 [facility] (Do not Use) TSH 1.06 uIU/ml 0.34 -5.60 finding [facility] [place] [address] [phone] Hemoglobin A1c 5.8 % 4.1-6.5 CBC With Auto Diff 07/10/2006 [facility] (Do not Use) WBC 5.8 K/ul 4.0- 10.9 [facility] [place] [address] [phone] RBC 4.88 M/ul 4.70-6.10 Hemoglobin 14.9 GM/dl [...] (Do not Use) Sodium 140 mmol/L 135-144 [facility] [place] [address] [phone] Potassium 4.7 mmol/L 3.6-5.2 Chloride 103 mmol/L [...] GFR Black Female 76 GFR Guidelines 0 96 Lipid Panel 07/10/2006 [facility] (Do not Use) Cholesterol 155 mg/dL 50 -199 [facility] [place], [place] [id number] [phone] Triglycerides 129 mg/dL 10-150 HDL 35 mg/dL 29-71 Chol/HDL Ratio 4.4 Ratio VLDL 26 mg/dL LDL (Calc) 94 mg/dL 20-129 Lipid [place] Panel 08/16/2004 [facility] (Do not Use) Ast 42 U/L 8-42 [facility] [place], [place] [id number] [phone] Alt 75 U/L High 3-42 Cholesterol 158 mg/dL 50-199 Triglycerides 304 mg/dL High 30-200 HDL 39 mg/dL 29-71 LDL (Calc) Triglyceride brandi <SEE NOTE> mg/dL 20-129 97 Chol/HDL Ratio 4.1 Ratio VLDL 61 mg/dL Laboratory test 08/16/2004 [facility] (Do not Use) Direct LDL 93 mg/dL 20-129 finding [facility] [place], [place] [id number] [phone] Testosterone, Free 06/28/2004 [facility] (Do not Use) Testosterone, 329 ng /dL 241-827 And Total Panel [facility] Serum [place], [place] [id number] [phone] Free Testosterone(Direct) 8.7 pg/mL 6.8-21.5 CBC 06/28/2004 [facility] (Do not Use) WBC 5.5 K/ul 4.1-10.9 [place] [address] [phone] RBC 4.98 M/ul 4.20-6.30 Hemoglobin 15.1 GM/dl [...] Use) TSH 1.65 uIU/ml 0.50 -6.00 [place] [address] [phone] Lipid TX Panel 06/28/2004 [facility] (Do not Use) Ast 23 U/L 8-42 [place] [address] [phone] Alt 36 U/L 3-42 Cholesterol 185 mg/dL 50-199 Triglycerides 276 mg/dL High 30-200 HDL 31 mg/dL 29-71 LDL (Calc) Triglyceride brandi <SEE NOTE> mg/dL 20-129 98 Chol/HDL Ratio 6.0 Ratio VLDL 55 mg/dL Laboratory test 06/28/2004 [facility] (Do not Use) Direct LDL 127 mg/dL 20-129 [place] [address] [phone] CBC 02/05/2004 [facility] (Do not Use) WBC 6.1 K/ul 4.1-10.9 [place] [address] [phone] RBC 5.03 M/ul 4.20-6.30 Hemoglobin 15.6 GM/dl [...] Use) Iron, 110 g/dL 65- 175 (Iron,Tibc,%Sat) [facility] [place], [place] [id number] [phone] Total Iron Binding Capacity 371 g/dL 261-478 % Iron Saturation 29.6 % 13.0-45.0 CBC 01/30/2004 [facility] (Do not Use) WBC 5.3 K/ul 4.1-10.9 [facility] [place] [address] [phone] RBC 4.86 M/ul 4.20-6.30 Hemoglobin 15.2 GM/dl [...] (Do not Use) Sodium 139 mmol/L 135-145 [facility] [place] [address] [phone] Potassium 5.0 mmol/L 3.4-5.3 Chloride 103 mmol/L [...] not Use) Cholesterol 226 mg/dL High 50-199 [facility] [place], [place] [id number] [phone] Triglycerides 151 mg/dL 30-200 HDL 45 mg/dL 29-71 Chol/HDL Ratio 5.0 Ratio VLDL 30 mg/dL LDL (Calc) 151 mg/dL High 20-129 Laboratory test 01/30/2004 [facility] (Do not Use) Helicobacter 0.47 0- 0.9 99 finding [facility] Pylori ([place] [address] Pylori), Igg [phone] CBC 01/14/2003 [facility] (Do not Use) WBC 6.3 K/ul 4.1-10.9 [facility] [place], [place] [id number] [phone] RBC 4.80 M/ul 4.20-6.30 Hemoglobin 15.3 GM/dl [...] not Use) PSA 0.66 ng/ml 0.00- 4.00 100 finding [facility] [place] [address] [phone] CMP 01/14/2003 [facility] (Do not Use) Sodium 141 mmol/L 135-145 [facility] [place] [address] [phone] Potassium 4.6 mmol/L 3.4-5.3 Chloride 105 mmol/L [...] not Use) Cholesterol 177 mg/dL 50 -199 [facility] [place] [address] [phone] Triglycerides 251 mg/dL High 30-200 101 HDL 33 mg/dL 29-71 Chol/HDL Ratio 5.4 Ratio VLDL 50 mg/dL LDL (Calc) Triglyceride brandi <SEE NOTE> mg/dL 20-129 102 Laboratory test 01/14/2003 [facility] (Do not Use) Direct LDL 114 mg/dL 20-129 finding [facility] [place] [address] [phone] CBC 01/03/2002 [facility] (Do not Use) WBC 5.4 K/ul 4.1-10.9 [facility] [place] [address] [phone] RBC 4.91 M/ul 4.2-6.3 Hemoglobin 14.6 GM/dl [...] (Do not Use) Esr 5 MM/HR 0-15 [facility] [place] [address] [phone] PSA 0.61 ng/ml 0.00-4.00 103 TSH 1.34 uIU/ml 0.50-6.00 Vitamin B12 591 pg/mL 230-1050 Folate FOLATE RESULT GR <SEE NOTE> ng/ml 3.0-16.0 104 Ferritin 149.8 ng/ml 22-340 CMP 01/03/2002 [facility] (Do not Use) Sodium 141 mmol/L 137-145 [facility] [place], [place] [id number] [phone] Potassium 5.0 mmol/L 3.6-5.0 Chloride 104 mmol/L [...] not Use) Cholesterol 134 mg/dL 50 -199 [facility] [place], [place] [address]30 [phone] Triglycerides 89 mg/dL 30-249 HDL Cholesterol 47 mg/dL 29-67 LDL(Calc) 70 mg/dL 20-129 Chol/HDL Ratio 2.86 105 VLDL Cholesterol 18 mg/dL Basic ([facility]) 10/23/2001 [facility] (Do not Use) Sodium 141 mmol/L 137- 145 [facility] [place] [address] [phone] Potassium 4.8 mmol/L 3.6-5.0 Chloride 107 mmol/L 98-107 Carbon Dioxide 24 mmol/L 22-30 Glucose 102 mg/dL 75-110 BUN 12 mg/dL 9-21 Creatinine, Serum 1.0 mg/dL 0.8-1.5 BUN/CR Ratio 13.1 Ratio 12-20 Anion Gap 15 mmol/L 10-20 Calcium 9.1 mg/dL 8.7-10.5 Lipid TX Panel 10/23/2001 [facility] (Do not Use) Ast 29 U/L 17-59 [facility] [place] [address] [phone] Alt 40 U/L 21-72 Cholesterol 147 mg/dL 50-199 Triglycerides 115 mg/dL 30-249 HDL Cholesterol 43 mg/dL 29-67 LDL(Calc) 81 mg/dL 20-129 Chol/HDL Ratio 3.41 106 VLDL Cholesterol 23 mg/dL 1 This sample is drawn by:[facility]AN[facility]. 2 Updated reference range on new analyzer 3 Updated reference range on new analyzer 4 Updated Reference Range 5 Concerning GFR Guidelines for Americans: Normal function or mild renal disease, if clinically at risk: >/=60 mL/min Moderately decreased: 30-59 Severely decreased: 15-29 Renal failure: <15 6 Concerning GFR Guidelines: Normal function or [...] that are excreted by the kidneys. 7 Per NCEP ATP III Guidelines: Results lower than 40 mg/dL are suggestive of increased risk for coronary artery disease. Results > or=to 60 mg/dL are considered a negative risk factor. 8 Per NCEP ATP III Guidelines: Normal Population <130 Patients with medical conditions: CHD/DM Optimal: <100 Borderline high: 130-159 High: 160-189 Very high: >189 9 Clinical Guidelines for recommended serum 25(OH)Vitamin D Deficient at less than 20 ng/mL Insufficient at 20 to <30 ng/mL Sufficient at 30-100 ng/mL Toxicity at greater than 100 ng/mL 10 [facility] [place] [address] Surgical Pathology Report Specimen(s) Received A: Left [...] block) emg rff/rce Technical component processed at [facility], Histopathology, [address] [place] [address], [facility]. Diagnosis and reporting performed at [facility], [address] [place] [address]. Reported: 01/27/2017 18:15 Electronically Signed Out By Brandi Lozano M.D. emg This report may include immunohistochemical or in-situ hybridization results. Testing was developed and the performance characteristics determined by [facility] as required by CLIA '88. The FDA has determined that approval for specific use is not necessary for clinical use. The quality of all stains including positive and negative controls for all immunohistochemical and/or special stains were reviewed and considered appropriate ICD9 Codes L90.9 CPT4 codes A: 96645T Unless otherwise specified, testing performed by [facility], [place] [address] 11 Per NCEP ATP III Guidelines: Results lower than 40 mg/dL are suggestive of increased risk for coronary artery disease. Results > or=to 60 mg/dL are considered a negative risk factor. 12 Per NCEP ATP III Guidelines: Normal Population <130 Patients with medical conditions: CHD/DM Optimal: <100 Borderline high: 130-159 High: 160-189 Very high: >189 13 Updated reference range on new analyzer 14 Updated reference range on new analyzer 15 Concerning GFR Guidelines for Americans: Normal [...] that are excreted by the kidneys. 17 Updated reference range on new analyzer 18 Updated reference range on new analyzer 19 Updated reference range on new analyzer 20 Concerning GFR Guidelines for Americans: Normal function or mild renal disease, if clinically at risk: >/=60 mL/min Moderately decreased: 30-59 Severely decreased: 15-29 Renal failure: <15 21 Concerning GFR Guidelines: Normal function or mild [...] drugs that are excreted by the kidneys. 22 Updated reference range on new analyzer 23 Per NCEP ATP III Guidelines: Results lower than 40 mg/dL are suggestive of increased risk for coronary artery disease. Results > or=to 60 mg/dL are considered a negative risk factor. 24 Per NCEP ATP III Guidelines: Normal Population <130 Patients with medical conditions: CHD/DM Optimal: <100 Borderline high: 130-159 High: 160-189 Very high: >189 25 Updated reference range on new analyzer 26 Updated reference range on new analyzer 27 Concerning GFR Guidelines for Americans: Normal function or mild renal disease, if clinically at risk: >/=60 mL/min Moderately decreased: 30-59 Severely decreased: 15-29 Renal failure: <15 28 Concerning GFR Guidelines: Normal function or mild [...] drugs that are excreted by the kidneys. 29 Updated reference range on new analyzer 30 Per NCEP ATP III Guidelines: Results lower than 40 mg/dL are suggestive of increased risk for coronary artery disease. Results > or=to 60 mg/dL are considered a negative risk factor. 31 Per NCEP ATP III Guidelines: Normal Population <130 Patients with medical conditions: CHD/DM Optimal: <100 Borderline high: 130-159 High: 160-189 Very high: >189 32 Beginning 06/12/06 PSA values assayed at [facility] uses chemiluminescence methodology manufactured by [employer] for use on the DXI analyzer. Values obtained with different assay methods or kits can not be used interchangeably. Serum PSA measurement is not an absolute test for malignancy. The PSA value should be used in conjunction with information available from clinical evaluation and other diagnostic procedures. 33 Concerning GFR Guidelines for Americans: Normal function or mild renal disease, if clinically at risk: >/=60 mL/min Moderately decreased: 30-59 Severely decreased: 15-29 Renal failure: <15 34 Concerning GFR Guidelines: Normal function or mild [...] drugs that are excreted by the kidneys. 35 456 Specimen Moderately Lipemic 36 Per NCEP ATP III Guidelines: Results lower than 40 mg/dL are suggestive of increased risk for coronary artery disease. Results > or=to 60 mg/dL are considered a negative risk factor. 37 Per NCEP ATP III Guidelines: Normal population: <130 Patients with medical conditions: CHD/DM Optimal range: <100 Borderline high: 130-159 High: 160-189 Very high: >189 38 Concerning GFR Guidelines for Americans: Normal function or mild renal disease, if clinically at risk: >/=60 mL/min Moderately decreased: 30-59 Severely decreased: 15-29 Renal failure: <15 39 Concerning GFR Guidelines: Normal function or mild [...] drugs that are excreted by the kidneys. 40 A Negative serologic test for Lyme Disease indicates no serologic evidence of infection with B burgdorferi at the time this specimen was collected. A repeat specimen should be collected in 2 to 4 weeks if clinically indicated. Unless otherwise specified, testing performed by [facility] [address] [place] [id number] 41 Reference range: 0 to 19 Unit: Units [...] be monitored and testing repeated. Performed by [facility], [address] [place] [address],[place] [address] [email or web address], Peyman Styles MD, Lab. Director Unless otherwise specified, testing performed by [facility] [place] [address] 42 IgG antibody to Rubella detected. IgG antibody levels are at a level considered to indicate positive immunity. Unless otherwise specified, testing performed by [facility] [address] [place] [id number] 43 IgG antibody to Measles detected. This may indicate that the patient was exposed to Measles through infection or vaccination. Unless otherwise specified, testing performed by [facility] [address] [place] [id number] 44 IgG antibody to Mumps detected. This may indicate that the patient was exposed to Mumps through infection or vaccination. Unless otherwise specified, testing performed by [facility] [address] [place] [address] 45 Beginning 06/12/06 PSA values assayed at [facility] uses an EIA methodology manufactured by [employer] for use on the DXI analyzer. Values obtained with different assay methods or kits can not be used interchangeably. Serum PSA measurement is not an absolute test for malignancy. The PSA value should be used in conjunction with information available from clinical evaluation and other diagnostic procedures. 46 Per NCEP ATP III Guidelines: Results lower than 40 mg/dL are suggestive of increased risk for coronary artery disease. Results > or=to 60 mg/dL are considered a negative risk factor. 47 Per NCEP ATP III Guidelines: Normal Population [...] that are excreted by the kidneys. [address] [place] [address] Surgical Pathology Report Specimen(s) Received A: Right [...] Multiple levels examined. Technical component processed at [facility], Histopathology, [address] [place] [address], [facility]. Diagnosis and reporting performed at [place] [address]. Reported: 12/12/2014 09:00 Electronically Signed Out By Jacob Weaver MD [facility] ICD9 Codes 701.9 Unless otherwise specified, testing performed by [facility], [place] [address] 51 Concerning GFR Guidelines for Americans: Normal function or mild renal disease, if clinically at risk: >/=60 mL/min Moderately decreased: 30-59 Severely decreased: 15-29 Renal failure: <15 52 Concerning GFR Guidelines: Normal function or mild [...] drugs that are excreted by the kidneys. 53 707 Specimen Moderately Lipemic 54 Per NCEP ATP III Guidelines: Results lower than 40 mg/dL are suggestive of increased risk for coronary artery disease. Results > or=to 60 mg/dL are considered a negative risk factor. 55 Specimen moderately lipemic. 56 Per NCEP ATP III Guidelines: Normal population: <130 Patients with medical conditions: CHD/DM Optimal range: <100 Borderline high: 130-159 High: 160-189 Very high: >189 57 This sample is drawn by: 58 May indicate a current or previous infection. 59 May indicate a current or previous infection. Unless otherwise specified, testing performed by [facility] [address] [place] [id number] 60 Results verified by repeat analysis 61 Concerning GFR Guidelines: Normal function or mild [...] drugs that are excreted by the kidneys. 62 Concerning GFR Guidelines for Americans: Normal function or mild renal disease, if clinically at risk: >/=60 mL/min Moderately decreased: 30-59 Severely decreased: 15-29 Renal failure: <15 63 This sample is drawn by:NB. 64 Per NCEP ATP III Guidelines: Results lower than 40 mg/dL are suggestive of increased risk for coronary artery disease. Results > or=to 60 mg/dL are considered a negative risk factor. 65 Per NCEP ATP III Guidelines: Optimal: <100 Near optimal: 100-129 Borderline high: 130-159 High: 160-189 Very high: >189 66 Concerning GFR Guidelines: Normal function or mild [...] drugs that are excreted by the kidneys. 67 Concerning GFR Guidelines for Americans: Normal function or mild renal disease, if clinically at risk: >/=60 mL/min Moderately decreased: 30-59 Severely decreased: 15-29 Renal failure: <15 68 Concerning GFR Guidelines: Normal function or mild [...] drugs that are excreted by the kidneys. 69 Concerning GFR Guidelines for Americans: Normal function or mild renal disease, if clinically at risk: >/=60 mL/min Moderately decreased: 30-59 Severely decreased: 15-29 Renal failure: <15 70 Per NCEP ATP III Guidelines: Results lower than 40 mg/dL are suggestive of increased risk for coronary artery disease. Results > or=to 60 mg/dL are considered a negative risk factor. 71 Per NCEP ATP III Guidelines: Optimal: <100 Near optimal: 100-129 Borderline high: 130-159 High: 160-189 Very high: >189 72 Beginning 06/12/06 PSA values assayed at [facility] uses an EIA methodology manufactured by [employer] for use on the DXI analyzer. Values obtained with different assay methods or kits can not be used interchangeably. Serum PSA measurement is not an absolute test for malignancy. The PSA value should be used in conjunction with information available from clinical evaluation and other diagnostic procedures. 73 Reference range: 300 to 890 Test Information: Testosterone, Adult Male To convert to nmol/L, multiply ng/dL by 0.0347. 74 Reference range: 11 to 80 75 Reference range: 47 to 244 REFERENCE INTERVAL: Testosterone, Free Brennan Stage IV 35 - 169 pg/mL Brennan Stage V 41 - 239 pg/mL To convert to pmol/L, multiply pg/mL by 3.47. The concentration of Free Testosterone is derived from a mathematical expression based on the constant for the binding of testosterone to sex hormone binding globulin. 76 Reference range: 1.6 to 2.9 Performed by [facility], [address] [place] [id number] [email or web address], Jayleen Galeas MD, Lab. Director Unless otherwise specified, testing performed by [facility] [address] [place] [address] 77 Concerning GFR GUIDELINES: Normal Function or Mild [...] drugs that are excreted by the kidneys. 78 Concerning GFR GUIDELINES: Normal Function or Mild Renal Disease, if clinically at risk: >/=60mL/min Moderately decreased: 30-59 Severely decreased: 15-29 Renal Failure: <15 79 PER NCEP ATP III GUIDELINES: RESULTS LOWER THAN 40 MG/DL ARE SUGGESTIVE OF INCREASED RISK FOR CORONARY ARTERY DISEASE. RESULTS > OR=TO 60 MG/DL ARE CONSIDERED A NEGATIVE RISK FACTOR. 80 INTERPRETATION OF CHOL-HDL RATIO CHD RISK FEMALE MALE VERY HIGH >8.3 >14.3 HIGH 5.6 - 8.3 6.7 - 14.3 AVERAGE 3.7 - 5.6 4.0 - 6.7 BELOW AVERAGE 2.5 - 3.7 2.7 - 4.0 PROTECTED <2.5 <2.7 81 PER NCEP ATP III GUIDELINES: OPTIMAL: <100 NEAR OPTIMAL: 100 - 129 BORDERLINE HIGH: 130 - 159 HIGH: 160 - 189 VERY HIGH: >189 82 Reference range: 300 to 890 Test Information: Testosterone, Adult Male To convert to nmol/L, multiply ng/dL by 0.0347. 83 Reference range: 11 to 80 84 Reference range: 47 to 244 REFERENCE INTERVAL: Testosterone, Free Brennan Stage IV 35 - 169 pg/mL Brennan Stage V 41 - 239 pg/mL To convert to pmol/L, multiply pg/mL by 3.47. The concentration of Free Testosterone is derived from a mathematical expression based on the constant for the binding of testosterone to sex hormone binding globulin. 85 Reference range: 1.6 to 2.9 Performed by [facility], [address] [place] [id number] [email or web address], aJyleen Galeas MD, Lab. Director Unless otherwise specified, testing performed by [facility] [address] [place] [id number] 86 BEGINNING 06/12/06, PSA VALUES ASSAYED AT [facility] USES AN EIA METHODOLOGY MANUFACTURED BY [employer] FOR USE ON THE DXI ANALYZER. VALUES OBTAINED WITH DIFFERENT ASSAY METHODS OR KITS CAN NOT BE USED INTERCHANGEABLY. SERUM PSA MEASUREMENT IS NOT AN ABSOLUTE TEST FOR MALIGNANCY, THE PSA VALUE SHOULD BE USED IN CONJUNCTION WITH INFORMATION AVAILABLE FROM CLINICAL EVALUATION AND OTHER DIAGNOSTIC PROCEDURES. 87 FASTING 88 Concerning GFR GUIDELINES: Normal Function or [...] drugs that are excreted by the kidneys. 89 Concerning GFR GUIDELINES: Normal Function or Mild Renal Disease, if clinically at risk: >/=60mL/min Moderately decreased: 30-59 Severely decreased: 15-29 Renal Failure: <15 90 REFERENCE RANGE FOR FOLATE: GREATER THAN 6.6 ng/mL 91 BEGINNING 06/12/06, PSA VALUES ASSAYED AT [facility] USES AN EIA METHODOLOGY MANUFACTURED BY [employer] FOR USE ON THE DXI ANALYZER. VALUES OBTAINED WITH DIFFERENT ASSAY METHODS OR KITS CAN NOT BE USED INTERCHANGEABLY. SERUM PSA MEASUREMENT IS NOT AN ABSOLUTE TEST FOR MALIGNANCY, THE PSA VALUE SHOULD BE USED IN CONJUNCTION WITH INFORMATION AVAILABLE FROM CLINICAL EVALUATION AND OTHER DIAGNOSTIC PROCEDURES. 92 Reference range: 350 to 890 REFERENCE INTERVAL: [...] Reference range: 1.6 to 2.9 Performed by [facility], [address] [place] [id number] [email or web address], Joe Banks MD - Lab. Director 96 Normal Function or Mild Renal Disease, if clinically at risk: >/=60 mL/min Moderately [...] drugs that are excreted by the kidneys. 97 Triglyceride value >250 mg/dl, see Direct LDL result 98 Triglyceride value >250 mg/dl, see Direct LDL result 99 < .90 Neg (No Immunity) .91- 1.09 Equivocal >=1.10 Positive . 100 PSA VALUES ASSAYED AT [facility] USES AN EIA METHODOLOGY MANUFACTERED BY [employer] FOR USE ON THE NEXIA ANALYZER. VALUES OBTAINED WITH DIFFERENT ASSAY METHODS OR KITS CAN NOT BE USED INT ERCHANGEABLY. SERUM PSA MEASUREMENT IS NOT AN ABSOLUTE TEST FOR MALIGNANCY, THE PSA VALUE SHOULD BE USED IN CONJUNCTION WITH INFORMATION AVAILABLE FROM CLINICAL EVALUATION AND OTHER DIAGNOSTIC PROCEDURES. 101 SLIGHTLY LIPEMIC 102 Triglyceride value >250 mg/dl, see Direct LDL result 103 PSA VALUES ASSAYED AT [facility] USES AN EIA METHODOLOGY MANUFACTERED BY [employer] FOR USE ON THE NEXIA ANALYZER. VALUES OBTAINED WITH DIFFERENT ASSAY METHODS OR KITS CAN NOT BE USED INT ERCHANGEABLY. SERUM PSA MEASUREMENT IS NOT AN ABSOLUTE TEST FOR MALIGNANCY, THE PSA VALUE SHOULD BE USED IN CONJUNCTION WITH INFORMATION AVAILABLE FROM CLINICAL EVALUATION AND OTHER DIAGNOSTIC PROCEDURES. PSA VALUES ASSAYED AT [facility] USES AN EIA METHODOLOGY MANUFACTERED BY [employer] FOR USE ON THE NEXIA ANALYZER. VALUES OBTAINED WITH DIFFERENT ASSAY METHODS OR KITS CAN NOT BE USED INT ERCHANGEABLY. SERUM PSA MEASUREMENT IS NOT AN ABSOLUTE TEST FOR MALIGNANCY, THE PSA VALUE SHOULD BE USED IN CONJUNCTION WITH INFORMATION AVAILABLE FROM CLINICAL EVALUATION AND OTHER DIAGNOSTIC PROCEDURES. 104 FOLATE RESULT GREATER THAN 23.0 NG/ML. RESULT CONFIRMED. 105 Normal Range: Male: <4.98 Female: <4.45 106 Normal Range: Male: <4.98 Female: <4.45 Procedures Date Code Description Status 08/27/2018 63221 Electrocardiogram Complete Completed 01/25/2017 08889 Remove Skin Tags Up To 15 Completed 07/15/2016 72298 Electrocardiogram Complete Completed 03/24/2015 48529752 Colonoscopy Completed 01/13/2015 70992 Electrocardiogram Complete Completed 12/08/2014 91824 Electrocardiogram Complete Completed 12/08/2014 91681 Remove Skin Tags Up To 15 Completed 06/18/2013 45270 Electrocardiogram Complete Completed 04/04/2011 94169 Electrocardiogram Complete Completed 03/07/2008 70630 Paring Or Cutting Benign Lesion Completed 01/09/2006 75263 Electrocardiogram Complete Completed 01/14/2003 72592 Electrocardiogram Complete Completed 01/14/2003 07084 Remove Impacted Cerumen Requiring Instrumentation Completed 01/03/2002 05494 Electrocardiogram Complete Completed 06/05/2000 45672 Remove Impacted Cerumen Requiring Instrumentation Completed 03/30/2000 68074 Electrocardiogram Complete Completed Encounters Type Date Location [...] Street B02.9 Zoster without C, 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 complications Office Visit 08/19/2016 2:00p Suzie Vogel [...] LEFT upper limb Office Visit 01/13/2015 11:30a Suzie Vogel R73.01 Impaired fasting MD Parul glucose [...] Due To Pollen Office Visit 07/19/2013 11:40a [address], 780.79 Malaise And Fatigue 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 Other 079.89 Viral Infection Spec Other Office [...] Bill Prostate Office Visit 04/03/2007 3:15p Sunitha Street 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 786.2 Cough 272.0 Hypercholesterolemia Pure 401.1 Hypertension [...] Visit 08/16/2004 4:45p Nadege Pope 272.0 Hypercholesterolemia Pure Suzie Teran MD 401.1 Hypertension Benign 720.2 Sacroiliitis Not Elsewhere Classified Office Visit 06/28/2004 2:15p Nadege Pope 272.0 Hypercholesterolemia Pure Suzie Teran MD 401.1 Hypertension Benign 724.2 Lumbago [...] W/O Obstr Office Visit 01/14/2003 11:20a Nadege Pope 272.1 Hypertriglyceridemia Izabella Teran MD 272.0 Hypercholesterolemia Pure 401.1 Hypertension Benign V76.44 Screening For Malig Bill Prostate V04.8 Need For Vaccination & Inoculation Other Viral Diseases Office Visit 01/18/2002 10:10a Suzie Vogel MD 780.79 Malaise And Fatigue Other 401.1 Hypertension Benign 780.57 Apnea, Unspecified Sleep Apnea Office Visit 01/03/2002 8:10a Nadege Pope 272.0 Hypercholesterolemia Izabella Teran MD 401.1 Hypertension Benign 785.1 Palpitations 780.79 Malaise And Fatigue Other Office Visit 10/23/2001 9:50a Nadege Pope 272.0 Hypercholesterolemia Izabella Teran MD 401.1 Hypertension Benign 784.0 Headache V58.69 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 Office Visit 02/13/2001 9:50a Suzie Vogel MD Office Visit 06/05/2000 1:40p Suzie Vogel MD Office Visit 01/25/2000 10:40a Suzie Vogel 401.1 Hypertension Benign MD Parul Office Visit 01/04/2000 11:10a Suzie Vogel 780.79 Malaise And Fatigue MD Parul Other Plan of Treatment 08/27/2018 - Suzie Pope MDZ00.01 Encounter for general adult medical examination with nxstkcwF26.33 Obstructive sleep apnea (adult) (pediatric)E55.9 Vitamin D deficiency, vfgcubuwkwqO12.2 Mixed hyperlipidemiaFollow up:4 mosE29.1 Testicular tupoqnnwadegL53 Essential (primary) noxvmbzewglsY02.5 Encounter for screening for malignant neoplasm of dpbrxcfzV76.11 Encounter for screening for malignant neoplasm of tmzmbZ24.9 Type 2 diabetes mellitus without seksyhstgeahjK40.9 Obesity, mdrywicsgqfP88.816 Spondylosis without myelopathy or radiculopathy, lumbar regiF41.1 Generalized anxiety folcgjzoB50.3 Ventricular premature depolarizationReferral:Janki Paulino,Z13.31 Encounter for screening for ticpyqguiaB43.37 Body mass index (BMI) 37.0-37.9, adult
--- NOTE | 2018-09-17 16:36 | ED ---
Adult Trauma - HPI Summary HPI Summary: This pt is a 58 y/o male presenting to [facility] c/o neck pain and shoulder pain s/ p tree branch struck him today. Pt reports he was outside working when a small tree branch fell from approximately 50 feet up. He states the tree branch struck him in the back of the neck, head, and shoulders. Denies LOC. Pt states he was able to ambulate right after. Denies weakness, numbness, tingling in LE, difficulty ambulating. Pt is not on anticoagulants. - History of Current Complaint Chief Complaint: EDNeckComplaint Stated Complaint: HIT IN NECK WITH TREE BRANCH THAT FELL 40 FT PER P Time Seen by Provider: 09/17/18 16:08 Hx Obtained From: Patient Mechanism of Injury: Direct Blow Ambulatory at the Scene: Yes Loss of Consciousness: no loss of consciousness Restraints: None Onset/Duration: Started Hours Ago, Still Present Current Severity: Moderate Pain Intensity: 5 Pain Scale Used: 0-10 Numeric Location: Neck, Other - shoulders Aggravating Factor(s): Nothing Alleviating Factor(s): Nothing Associated Signs & Symptoms: Negative: Loss of Consciousness, Significant Blood Loss - Allergy/Home Medications Allergies/Adverse Reactions: Allergies Allergy/AdvReac Type Severity Reaction Status Date / Time adhesive Allergy Rash Verified 09/17/18 13:22 topiramate Allergy Unknown Verified 09/17/18 13:21 Reaction Details PMH/Surg Hx/FS Hx/Imm Hx Endocrine/Hematology History: Denies: Hx Diabetes, Hx Thyroid Disease Cardiovascular History: Reports: Hx Hypertension - ON MEDS Denies: Hx Pacemaker/ICD Respiratory History: Denies: Hx Asthma, Hx Chronic Obstructive Pulmonary Disease (COPD) GI History: Denies: Hx Ulcer History: Denies: Hx Dialysis, Hx Renal Disease Sensory History: Denies: Hx Hearing Aid Psychiatric History: Denies: Hx Panic Disorder - Surgical History Surgery Procedure, Year, and Place: BILAT HIP REPLACEMENT. T&A. ANAL FISTULA REPAIR Infectious Disease History: No Infectious Disease History: Reports: Traveled Outside the [place] in Last 30 Days - [place] Denies: Hx Clostridium Difficile, Hx Hepatitis, Hx Human Immunodeficiency Virus (HIV), Hx of Known/Suspected MRSA, Hx Shingles, Hx Tuberculosis, Hx Known/ Suspected VRE, Hx Known/Suspected VRSA, History Other Infectious Disease - Family History Known Family History: Positive: Diabetes - Father, Respiratory Disease - Mother : COPD Family History: Father with Alzheimer's disease. - Social History Alcohol Use: Occasionally Substance Use Type: Reports: None Smoking Status (MU): Former Smoker Review of Systems Negative: Fever Cardiovascular: Negative Respiratory: Negative Musculoskeletal: Other - POS: neck pain, shoulder pain Neurological: Other - NEGATIVE: LOC, difficulty ambulating Negative: Weakness, Paresthesia, Numbness All Other Systems Reviewed And Are Negative: Yes Physical Exam - Summary Physical Exam Summary: VITAL SIGNS: Reviewed. GENERAL: Patient is a well-developed and nourished male who is lying comfortable in the stretcher. Patient is not in any acute respiratory distress. HEAD AND FACE: No signs of trauma. No ecchymosis, hematomas or skull depressions. No sinus tenderness. EYES: PERRLA, EOMI x 2, No injected conjunctiva, no nystagmus. EARS: Hearing grossly intact. Ear canals and tympanic membranes are within normal limits. MOUTH: Oropharynx within normal limits. NECK: Supple, trachea is midline, no adenopathy, no JVD, no carotid bruit. C- collar in place. CHEST: Symmetric, no tenderness at palpation LUNGS: Clear to auscultation bilaterally. No wheezing or crackles. CVS: Regular rate and rhythm, S1 and S2 present, no murmurs or gallops appreciated. ABDOMEN: Soft, non-tender. No signs of distention. No rebound no guarding, and no masses palpated. Bowel sounds are normal. EXTREMITIES: FROM in all major joints, no edema, no cyanosis or clubbing. NEURO: Alert and oriented x 3. No acute neurological deficits. Speech is normal and follows commands. SKIN: Dry and warm GCS: 15 Triage Information Reviewed: Yes Vital Signs On Initial Exam: Initial Vitals Temp Pulse Resp BP Pulse Ox 97.6 F 76 16 131/97 96 09/17/18 13:17 09/17/18 13:17 09/17/18 13:17 09/17/18 13:17 09/17/18 13:17 Vital Signs Reviewed: Yes Diagnostics - Vital Signs Vital Signs Temp Pulse Resp BP Pulse Ox 09/17/18 15:30 98.2 F 60 16 136/82 97 09/17/18 13:17 97.6 F 76 16 131/97 96 - Laboratory Lab Statement: Any lab studies that have been ordered have been reviewed, and results considered in the medical decision making process. - CT Brain CT CT Interpretation Completed By: Radiologist Summary of CT Findings: IMPRESSION: #. No CT evidence for traumatic brain injury. #. Negative unenhanced head CT. Dr. Chaparro has reviewed this report. Cervical spine CT CT Interpretation Completed By: Radiologist Summary of CT Findings: IMPRESSION: No CT evidence for traumatic cervical spine injury. Dr. Chaparro has reviewed this report. Re-Evaluation - Re-Evaluation First Eval Re-Evaluation Time: 19:00 Comment: Reviewed brain CT and C-spine CT results with the pt. Pt declines any pain medications. He will be discharged home with follow up from his PCP. Adult Trauma Course/Dx - Course Assessment/Plan: This pt is a 58 y/o male presenting to [facility] c/o neck pain and shoulder pain s/p tree branch struck him today. Pt reports he was outside working when a small tree branch fell from approximately 50 feet up. He states the tree branch struck him in the back of the neck, head, and shoulders. Denies LOC. Pt states he was able to ambulate right after. Denies weakness, numbness, tingling in LE, difficulty ambulating. Pt is not on anticoagulants. C-spine CT impression: No CT evidence of cervical spine injury. Brain CT impression: No CT evidence for traumatic brain injury. At this time I offered pain medications for the patient and he declined. The patient will be discharged home with follow-up from his PCP. I discussed all the findings and test results with the patient. Patient was instructed to return to the emergency room immediately if any of the symptoms return or worsen. Plan of care was discussed with the patient, and he understands and agrees. All questions were answered at patient satisfaction. There were no further complaints or concerns. Lung exam before discharge: CTA B/L. Good air exchange. No wheezing or crackles heard. CVS: S1 and S2 present. No murmurs appreciated. Patient is alert and oriented x 3. Patient is hemodynamically stable. Patient will be discharged home with follow up from his PCP in the next 2-3 days. - Diagnoses Provider Diagnoses: Neck pain Discharge - Sign-Out/Discharge Documenting (check all that apply): Patient Departure - Discharge home Patient Received Moderate/Deep Sedation with Procedure: No - Discharge Plan Condition: Stable Disposition: HOME Patient Education Materials: Neck Pain (ED) Referrals: Suzie Werner MD [Primary Care Provider] - Additional Instructions: FOLLOW UP WITH YOUR PRIMARY CARE PROVIDER IN 2-3 DAYS. RETURN TO THE EMERGENCY DEPARTMENT FOR ANY WORSENING OR NEW SYMPTOMS. - Attestation Statements Document Initiated by Scribe: Yes Documenting Scribe: Gwendolyn Rivers Provider For Whom Scribe is Documenting (Include Credential): Lazarus Chaparro MD Scribe Attestation: Gwendolyn Chandler, scribed for Lazarus Chaparro MD on 09/17/18 at 1914. Status of Scribe Document: Ready
[2018-09-17 19:08] VITALS: BP 121/72
== END 2018-09-17 19:08 | disposition home or self-care (01) ==
LOC: ED 13:12
DX: M54.2 Cervicalgia (principal); I10 Essential (primary) hypertension; Z88.8 Allergy status to other drugs, medicaments and biological substances; Z79.899 Other long term (current) drug therapy; Z87.891 Personal history of nicotine dependence
CPT/HCPCS: 70450; 72125; 99282